=== PATIENT | female | born 1930 | race Native Hawaiian/Other Pacific Islander ===

== ENCOUNTER 2016-06-13 11:51 | Inpatient (IN) | payer MEDICARE ==
[~2016-06-13] VITALS: Ht 160 cm; Wt 45.4 kg
[~2016-06-13 11:51] MED LIST: ARICEPT PO; ASPIRIN PO; CARB-93 PO; FOSAMAX PO; LEXAPRO PO; NAMENDA PO; REQUIP PO
[2016-06-13] MEDS ORDERED: ALEN70TA3 PO (12:14)
[2016-06-13] MEDS ORDERED: DONE10TA44 PO (12:14)
[2016-06-13] MEDS ORDERED: IPRA42SP NS (12:14)
[2016-06-13] MEDS ORDERED: ASPI81TA31 PO (12:14)
[2016-06-13] MEDS ORDERED: ESCI10TA PO (12:14)
[2016-06-13] MEDS ORDERED: MEMA10TA PO (12:14)
[2016-06-13] MEDS ORDERED: DOCU250C75 PO (12:14)
[2016-06-13] MEDS ORDERED: ROPI0.253 PO (12:14)
[2016-06-13] MEDS ORDERED: CEFTRIAXONE 1 G in IV DEXTROSE 5% 50 ML IV ONE (12:15)
[2016-06-13] MEDS ORDERED: GENTAMICIN SULFATE INJ 80 MG in IV DEXTROSE 5% 100 ML IV ONE (12:15)
[2016-06-13] MEDS ORDERED: IV NORMAL SALINE 1000 ML BAG IV ONE (12:15)
[2016-06-13] MEDS ORDERED: GENTAMICIN SULFATE 80 MG/2 ML VIAL ONE (12:50)
[2016-06-13 12:51] LABS: BASOPHILS # (AUTO) 0.2 K/uL (0.0-0.2); BASOPHILS % (AUTO) 2.3 % (0.0-2.0); EOSINOPHILS % (AUTO) 0.1 % (0.0-7.0); HEMATOCRIT 37.6 % (37.0-47.0); HEMOGLOBIN 12.2 g/dL (12.0-16.0); LYMPHOCYTES # (AUTO) 2.7 K/uL (0.8-4.8); LYMPHOCYTES % (AUTO) 32.6 % (20.5-51.5); MEAN CORPUSCULAR HEMOGLOBIN 32.1 uug (27.0-31.0); MEAN CORPUSCULAR HGB CONC 33 g/dL (32.0-37.0); MEAN CORPUSCULAR VOLUME 98.8 fL (81.0-99.0); MONOCYTES # (AUTO) 0.8 K/uL (0.1-1.30); MONOCYTES % (AUTO) 9.9 % (0.0-11.0); NEUTROPHILS # (AUTO) 4.5 K/uL (1.8-8.9); NEUTROPHILS % (AUTO) 55.1 % (38.5-71.5); PLATELET COUNT (AUTO) 87 K/uL (150-450); RED CELL DISTRIBUTION WIDTH 13.7 % (11.5-14.5); WHITE BLOOD COUNT (AUTO) 8.2 K/uL (4.0-11.2)
[2016-06-13] MEDS ORDERED: CEFTRIAXONE 1 G VIAL ONE (12:51)
[2016-06-13 13:00] LABS: CALCIUM 9.2 mg/dL (8.5-10.1); CREATININE 0.9 mg/dL (0.6-1.3); POTASSIUM 4.2 mmol/L (3.5-5.1)
[2016-06-13 13:06] LABS: *BILIRUBIN,URIN NEGATIVE (NEGATIVE); *BLOOD, URINE NEGATIVE (NEGATIVE); *CLARITY,URINE SLIGHTLY CLOUDY (CLEAR); *COLOR,URINE YELLOW (YELLOW); *KETONES,URINE TRACE (NEGATIVE); *PROTEIN,URINE 2+ (NEGATIVE); *UROBILINOGEN,URINE 0.2 E.U./dl (NORMAL); LEUKOCYTE ESTERASE ,URINE 1+ (NEGATIVE); NITRITE, URINE NEGATIVE (NEGATIVE); PH,URINE 5.5 (5.0-8.0); UGLUCOSE NEGATIVE (NEGATIVE)
[2016-06-13 13:07] LABS: TROPONIN I 0.022 ng/mL (0.00-0.056)
[2016-06-13 13:09] LABS: LACTIC ACID 4.6 mmol/L (0.4-2.0)
[2016-06-13 13:14] LABS: ALBUMIN 3.3 g/dL (3.4-5.0); BILIRUBIN,DIRECT 0.1 mg/dL (0.0-0.2); BILIRUBIN,TOTAL 0.5 mg/dL (0.2-1.0); TOTAL PROTEIN, SERUM 6.7 g/dL (6.4-8.2)
[2016-06-13 13:29] LABS: BACTERIA,URINE FEW /HPF (NONE SEEN); WBC,URINE 20-50 /HPF (0-3)
[2016-06-13 13:30] LABS: SQUAMOUS EPITHELIAL CELL,UR MODERATE /HPF (NONE SEEN)
[2016-06-13 13:36] LABS: BAND % (MANUAL) 2 % (0-10); LYMPHOCYTES % (MANUAL) 37 % (20-40); MONOCYTES % (MANUAL) 10 % (2-10); NEUTROPHILS % (MANUAL) 51 % (42-75); PLATELET ESTIMATE DECREASED
[2016-06-13 16:40] VITALS: BP 105/53
[2016-06-13] MEDS ORDERED: ACETAMINOPHEN 325 MG TABLET PO PRN (17:00)
[2016-06-13] MEDS ORDERED: MORPHINE SULFATE 2 MG/1 ML DISP.SYRIN IV PRN (17:00)
[2016-06-13] MEDS ORDERED: DONEPEZIL 10 MG TABLET PO SCH (17:00)
[2016-06-13] MEDS ORDERED: ASPIRIN 81 MG TAB.CHEW PO SCH (17:00)
[2016-06-13 17:55] VITALS: BP 105/53
[2016-06-13] MEDS: ropiniROLE 0.25 MG TABLET PO SCH (18:02)
[2016-06-13] MEDS: CARBIDOPA/LEVODOPA 25-100MG TABLET PO SCH (18:02)
[2016-06-13] MEDS: IV NS 1000 ML 1,000 ML IV PRN (18:15)
[2016-06-13 20:00] VITALS: BP 123/62
[2016-06-13] MEDS ORDERED: DOCUSATE SODIUM 250 MG CAPSULE PO SCH (21:00)
[2016-06-13] MEDS: MEMANTINE HCL 10 MG TABLET PO SCH (21:20)
[2016-06-13] MEDS: DOCUSATE SODIUM 250 MG CAPSULE PO SCH (21:20)
[2016-06-13] MEDS: ESCITALOPRAM OXALATE 10 MG TABLET PO SCH (21:20)
[2016-06-14] VITALS (7 sets, daily range): BP systolic 99–141; BP diastolic 57–76
[2016-06-14] MEDS: IV NS 1000 ML 1,000 ML IV PRN ×2 (06:27→23:13)
[2016-06-14] MEDS: PANTOPRAZOLE SODIUM 40 MG TABLET.DR PO SCH (06:37)
[2016-06-14 07:05] LABS: BASOPHILS % (AUTO) 0.4 % (0.0-2.0); EOSINOPHILS # (AUTO) 0.1 K/uL (0.0-0.7); EOSINOPHILS % (AUTO) 1.3 % (0.0-7.0); HEMATOCRIT 34.2 % (37.0-47.0); HEMOGLOBIN 11.3 g/dL (12.0-16.0); LYMPHOCYTES # (AUTO) 1.7 K/uL (0.8-4.8); LYMPHOCYTES % (AUTO) 26.5 % (20.5-51.5); MEAN CORPUSCULAR HEMOGLOBIN 32.7 uug (27.0-31.0); MEAN CORPUSCULAR HGB CONC 33 g/dL (32.0-37.0); MEAN CORPUSCULAR VOLUME 98.8 fL (81.0-99.0); MONOCYTES # (AUTO) 0.4 K/uL (0.1-1.30); MONOCYTES % (AUTO) 6.9 % (0.0-11.0); NEUTROPHILS # (AUTO) 4.1 K/uL (1.8-8.9); NEUTROPHILS % (AUTO) 64.9 % (38.5-71.5); PLATELET COUNT (AUTO) 118 K/uL (150-450); RED BLOOD CELL COUNT(AUTO) 3.46 MIL/uL (4.20-5.40); WHITE BLOOD COUNT (AUTO) 6.3 K/uL (4.0-11.2)
[2016-06-14 08:48] LABS: THYROID STIMULATING HORMONE 1.68 mIU/mL (0.358-3.740)
[2016-06-14] MEDS: CARBIDOPA/LEVODOPA 25-100MG TABLET PO SCH ×3 (08:48→17:12)
[2016-06-14] MEDS: DOCUSATE SODIUM 250 MG CAPSULE PO SCH ×2 (08:48→20:26)
[2016-06-14] MEDS: MEMANTINE HCL 10 MG TABLET PO SCH ×2 (08:48→20:26)
[2016-06-14] MEDS: ropiniROLE 0.25 MG TABLET PO SCH ×2 (08:51→17:12)
[2016-06-14 10:39] LABS: ALBUMIN 2.9 g/dL (3.4-5.0); BILIRUBIN,TOTAL 0.7 mg/dL (0.2-1.0); CALCIUM 7.9 mg/dL (8.5-10.1); CREATININE 0.7 mg/dL (0.6-1.3); MAGNESIUM 1.8 mg/dL (1.8-2.4); POTASSIUM 3.7 mmol/L (3.5-5.1); TOTAL PROTEIN, SERUM 5.8 g/dL (6.4-8.2)
[2016-06-14] MEDS: CEFTRIAXONE 1 G in IV DEXTROSE 5% 50 ML IV SCH (12:53)
[2016-06-14] MEDS: ESCITALOPRAM OXALATE 10 MG TABLET PO SCH (20:26)
[2016-06-14] MEDS ORDERED: LORAZEPAM 2 MG/1 ML VIAL IV PRN (20:30)
[2016-06-14] MEDS ORDERED: LORAZEPAM 2 MG/1 ML VIAL IV ONE (22:00)
[2016-06-14] MEDS ORDERED: LORAZEPAM 2 MG/1 ML VIAL ONE (22:03)
[2016-06-15 00:42] VITALS: BP 138/75
[2016-06-15 04:00] VITALS: BP 151/86
[2016-06-15] MEDS: PANTOPRAZOLE SODIUM 40 MG TABLET.DR PO SCH (06:04)
[2016-06-15 07:14] LABS: BASOPHILS % (AUTO) 0.1 % (0.0-2.0); EOSINOPHILS # (AUTO) 0.1 K/uL (0.0-0.7); EOSINOPHILS % (AUTO) 0.9 % (0.0-7.0); HEMATOCRIT 36.5 % (37.0-47.0); HEMOGLOBIN 11.7 g/dL (12.0-16.0); LYMPHOCYTES # (AUTO) 1.2 K/uL (0.8-4.8); LYMPHOCYTES % (AUTO) 13.1 % (20.5-51.5); MEAN CORPUSCULAR HEMOGLOBIN 31.9 uug (27.0-31.0); MEAN CORPUSCULAR HGB CONC 32 g/dL (32.0-37.0); MEAN CORPUSCULAR VOLUME 99.4 fL (81.0-99.0); MONOCYTES # (AUTO) 0.5 K/uL (0.1-1.30); MONOCYTES % (AUTO) 6.1 % (0.0-11.0); NEUTROPHILS % (AUTO) 79.8 % (38.5-71.5); PLATELET COUNT (AUTO) 116 K/uL (150-450); RED BLOOD CELL COUNT(AUTO) 3.67 MIL/uL (4.20-5.40); RED CELL DISTRIBUTION WIDTH 14.1 % (11.5-14.5); WHITE BLOOD COUNT (AUTO) 8.8 K/uL (4.0-11.2)
[2016-06-15] MEDS: MEMANTINE HCL 10 MG TABLET PO SCH ×2 (08:03→21:36)
[2016-06-15] MEDS: CARBIDOPA/LEVODOPA 25-100MG TABLET PO SCH ×3 (08:03→17:13)
[2016-06-15] MEDS: DOCUSATE SODIUM 250 MG CAPSULE PO SCH ×2 (08:03→21:36)
[2016-06-15] MEDS: ropiniROLE 0.25 MG TABLET PO SCH ×2 (08:04→17:14)
[2016-06-15 08:13] LABS: ALBUMIN 2.9 g/dL (3.4-5.0); BILIRUBIN,TOTAL 0.7 mg/dL (0.2-1.0); CALCIUM 8.1 mg/dL (8.5-10.1); CREATININE 0.6 mg/dL (0.6-1.3); MAGNESIUM 1.6 mg/dL (1.8-2.4); POTASSIUM 3.7 mmol/L (3.5-5.1); TOTAL PROTEIN, SERUM 6.2 g/dL (6.4-8.2)
[2016-06-15] MEDS: MAGNESIUM SULFATE/D5W 100 ML IV SCH ×2 (10:28→10:36)
[2016-06-15 12:04] VITALS: BP 118/42
[2016-06-15] MEDS ORDERED: Z GUARD REMEDY PASTE 57 GM TUBE TOP PRN (12:45)
[2016-06-15] MEDS: Z GUARD REMEDY PASTE 57 GM TUBE TOP SCH ×2 (13:19→21:36)
[2016-06-15] MEDS: CEFTRIAXONE 1 G in IV DEXTROSE 5% 50 ML IV SCH (13:19)
[2016-06-15 16:03] VITALS: BP 123/79
[2016-06-15 17:50] LABS: *BILIRUBIN,URIN NEGATIVE (NEGATIVE); *BLOOD, URINE 3+ (NEGATIVE); *COLOR,URINE YELLOW (YELLOW); *KETONES,URINE NEGATIVE (NEGATIVE); *PROTEIN,URINE 1+ (NEGATIVE); *UROBILINOGEN,URINE 0.2 E.U./dl (NORMAL); LEUKOCYTE ESTERASE ,URINE NEGATIVE (NEGATIVE); NITRITE, URINE NEGATIVE (NEGATIVE); PH,URINE 5.5 (5.0-8.0); UGLUCOSE NEGATIVE (NEGATIVE)
[2016-06-15 18:03] LABS: *CLARITY,URINE HAZY (CLEAR)
[2016-06-15 18:06] LABS: MUCUS,URINE MODERATE /LPF (0-FEW); RBC,URINE 50-80 /HPF (0-3); WBC,URINE 0-3 /HPF (0-3)
[2016-06-15 20:00] VITALS: BP 126/62
[2016-06-15] MEDS ORDERED: FUROSEMIDE 20 MG/2 ML VIAL IV ONE (21:30)
[2016-06-15] MEDS: ESCITALOPRAM OXALATE 10 MG TABLET PO SCH (21:36)
[2016-06-15] MEDS ORDERED: FUROSEMIDE 20 MG/2 ML VIAL ONE (21:53)
[2016-06-16 06:39] LABS: BASOPHILS % (AUTO) 0.1 % (0.0-2.0); EOSINOPHILS # (AUTO) 0.1 K/uL (0.0-0.7); EOSINOPHILS % (AUTO) 0.8 % (0.0-7.0); HEMATOCRIT 37.5 % (37.0-47.0); HEMOGLOBIN 12.2 g/dL (12.0-16.0); LYMPHOCYTES # (AUTO) 1.2 K/uL (0.8-4.8); LYMPHOCYTES % (AUTO) 14.4 % (20.5-51.5); MEAN CORPUSCULAR HGB CONC 32 g/dL (32.0-37.0); MEAN CORPUSCULAR VOLUME 98.5 fL (81.0-99.0); MONOCYTES # (AUTO) 0.7 K/uL (0.1-1.30); MONOCYTES % (AUTO) 8.1 % (0.0-11.0); NEUTROPHILS # (AUTO) 6.6 K/uL (1.8-8.9); NEUTROPHILS % (AUTO) 76.6 % (38.5-71.5); PLATELET COUNT (AUTO) 109 K/uL (150-450); RED BLOOD CELL COUNT(AUTO) 3.81 MIL/uL (4.20-5.40); RED CELL DISTRIBUTION WIDTH 13.9 % (11.5-14.5); WHITE BLOOD COUNT (AUTO) 8.6 K/uL (4.0-11.2)
[2016-06-16] MEDS: PANTOPRAZOLE SODIUM 40 MG TABLET.DR PO SCH (06:45)
[2016-06-16 06:58] VITALS: BP 122/68
[2016-06-16 07:33] LABS: BILIRUBIN,TOTAL 1.1 mg/dL (0.2-1.0); CALCIUM 8.3 mg/dL (8.5-10.1); CREATININE 0.7 mg/dL (0.6-1.3); MAGNESIUM 1.8 mg/dL (1.8-2.4); PHOSPHOROUS 2.8 mg/dL (2.5-4.9); POTASSIUM 3.6 mmol/L (3.5-5.1); TOTAL PROTEIN, SERUM 6.6 g/dL (6.4-8.2)
[2016-06-16] MEDS: DOCUSATE SODIUM 250 MG CAPSULE PO SCH ×2 (08:16→20:47)
[2016-06-16] MEDS: CARBIDOPA/LEVODOPA 25-100MG TABLET PO SCH ×3 (08:16→17:05)
[2016-06-16] MEDS: MEMANTINE HCL 10 MG TABLET PO SCH ×2 (08:18→20:47)
[2016-06-16] MEDS: ASPIRIN 81 MG TAB.CHEW PO SCH (08:18)
[2016-06-16] MEDS: ropiniROLE 0.25 MG TABLET PO SCH ×2 (08:19→17:05)
[2016-06-16] MEDS: Z GUARD REMEDY PASTE 57 GM TUBE TOP SCH ×2 (08:20→20:48)
[2016-06-16 11:55] VITALS: BP 108/56
[2016-06-16] MEDS: CEFTRIAXONE 1 G in IV DEXTROSE 5% 50 ML IV SCH (12:50)
[2016-06-16 16:02] VITALS: BP 106/65
[2016-06-16 20:00] VITALS: BP 93/56
[2016-06-16] MEDS: ESCITALOPRAM OXALATE 10 MG TABLET PO SCH (20:47)
[2016-06-17 05:00] VITALS: BP 119/73
[2016-06-17] MEDS: PANTOPRAZOLE SODIUM 40 MG TABLET.DR PO SCH (06:39)
[2016-06-17 07:04] LABS: BASOPHILS % (AUTO) 0.3 % (0.0-2.0); EOSINOPHILS # (AUTO) 0.1 K/uL (0.0-0.7); EOSINOPHILS % (AUTO) 2.1 % (0.0-7.0); HEMATOCRIT 34.4 % (37.0-47.0); HEMOGLOBIN 11.3 g/dL (12.0-16.0); LYMPHOCYTES # (AUTO) 1.2 K/uL (0.8-4.8); LYMPHOCYTES % (AUTO) 18.6 % (20.5-51.5); MEAN CORPUSCULAR HEMOGLOBIN 32.5 uug (27.0-31.0); MEAN CORPUSCULAR HGB CONC 33 g/dL (32.0-37.0); MEAN CORPUSCULAR VOLUME 98.9 fL (81.0-99.0); MONOCYTES # (AUTO) 0.7 K/uL (0.1-1.30); MONOCYTES % (AUTO) 10.6 % (0.0-11.0); NEUTROPHILS # (AUTO) 4.6 K/uL (1.8-8.9); NEUTROPHILS % (AUTO) 68.4 % (38.5-71.5); PLATELET COUNT (AUTO) 107 K/uL (150-450); RED BLOOD CELL COUNT(AUTO) 3.48 MIL/uL (4.20-5.40); RED CELL DISTRIBUTION WIDTH 14.1 % (11.5-14.5); WHITE BLOOD COUNT (AUTO) 6.6 K/uL (4.0-11.2)
[2016-06-17 08:08] LABS: CALCIUM 8.3 mg/dL (8.5-10.1); CREATININE 0.6 mg/dL (0.6-1.3); MAGNESIUM 1.7 mg/dL (1.8-2.4); PHOSPHOROUS 2.7 mg/dL (2.5-4.9); POTASSIUM 3.8 mmol/L (3.5-5.1)
[2016-06-17] MEDS: CARBIDOPA/LEVODOPA 25-100MG TABLET PO SCH ×3 (08:10→16:22)
[2016-06-17] MEDS: MEMANTINE HCL 10 MG TABLET PO SCH ×2 (08:11→21:06)
[2016-06-17] MEDS: ropiniROLE 0.25 MG TABLET PO SCH ×2 (08:11→16:22)
[2016-06-17] MEDS: ASPIRIN 81 MG TAB.CHEW PO SCH (08:11)
[2016-06-17] MEDS: DOCUSATE SODIUM 250 MG CAPSULE PO SCH ×2 (08:11→21:06)
[2016-06-17] MEDS: Z GUARD REMEDY PASTE 57 GM TUBE TOP SCH ×2 (08:12→21:07)
[2016-06-17 11:30] VITALS: BP 107/58
[2016-06-17] MEDS: CEFTRIAXONE 1 G in IV DEXTROSE 5% 50 ML IV SCH (12:58)
[2016-06-17] MEDS: MAGNESIUM SULFATE/D5W 100 ML IV SCH ×2 (15:20→16:24)
[2016-06-17 15:33] VITALS: BP 104/50
[2016-06-17 19:00] VITALS: BP 131/69
[2016-06-17] MEDS: ESCITALOPRAM OXALATE 10 MG TABLET PO SCH (21:06)
[2016-06-18 04:41] VITALS: BP 122/67
[2016-06-18] MEDS: PANTOPRAZOLE SODIUM 40 MG TABLET.DR PO SCH (06:23)
[2016-06-18 06:46] LABS: CALCIUM 7.9 mg/dL (8.5-10.1); MAGNESIUM 1.8 mg/dL (1.8-2.4); PHOSPHOROUS 2.6 mg/dL (2.5-4.9); POTASSIUM 3.8 mmol/L (3.5-5.1)
[2016-06-18 06:51] LABS: CREATININE 0.5 mg/dL (0.6-1.3)
[2016-06-18 06:55] LABS: BASOPHILS % (AUTO) 0.2 % (0.0-2.0); EOSINOPHILS # (AUTO) 0.1 K/uL (0.0-0.7); EOSINOPHILS % (AUTO) 2.1 % (0.0-7.0); HEMATOCRIT 31.9 % (37.0-47.0); HEMOGLOBIN 10.7 g/dL (12.0-16.0); LYMPHOCYTES # (AUTO) 1.3 K/uL (0.8-4.8); LYMPHOCYTES % (AUTO) 19.9 % (20.5-51.5); MEAN CORPUSCULAR HEMOGLOBIN 32.8 uug (27.0-31.0); MEAN CORPUSCULAR HGB CONC 34 g/dL (32.0-37.0); MEAN CORPUSCULAR VOLUME 97.6 fL (81.0-99.0); MONOCYTES # (AUTO) 0.8 K/uL (0.1-1.30); MONOCYTES % (AUTO) 12.4 % (0.0-11.0); NEUTROPHILS # (AUTO) 4.1 K/uL (1.8-8.9); NEUTROPHILS % (AUTO) 65.4 % (38.5-71.5); PLATELET COUNT (AUTO) 125 K/uL (150-450); RED BLOOD CELL COUNT(AUTO) 3.27 MIL/uL (4.20-5.40); WHITE BLOOD COUNT (AUTO) 6.3 K/uL (4.0-11.2)
[2016-06-18] MEDS: Z GUARD REMEDY PASTE 57 GM TUBE TOP SCH (08:30)
[2016-06-18] MEDS: MEMANTINE HCL 10 MG TABLET PO SCH (08:30)
[2016-06-18] MEDS: DOCUSATE SODIUM 250 MG CAPSULE PO SCH (08:30)
[2016-06-18] MEDS: ASPIRIN 81 MG TAB.CHEW PO SCH (08:30)
[2016-06-18] MEDS: ropiniROLE 0.25 MG TABLET PO SCH ×2 (08:30→17:50)
[2016-06-18] MEDS: CARBIDOPA/LEVODOPA 25-100MG TABLET PO SCH ×3 (08:30→17:50)
[2016-06-18] MEDS ORDERED: FUROSEMIDE 20 MG/2 ML VIAL IV SCH (09:00)
[2016-06-18] MEDS ORDERED: FAMO-132 PO (10:46)
[2016-06-18] MEDS ORDERED: ASPI81TA31 PO (10:46)
[2016-06-18] MEDS ORDERED: Acetaminophen PO (10:46)
[2016-06-18] MEDS ORDERED: MAGN400T26 PO (10:46)
[2016-06-18] MEDS ORDERED: LEVO500T15 PO (10:46)
[2016-06-18 12:00] VITALS: BP 100/55
[2016-06-18] MEDS: CEFTRIAXONE 1 G in IV DEXTROSE 5% 50 ML IV SCH (13:29)
[2016-06-18] MEDS ORDERED: FUROSEMIDE 20 MG/2 ML VIAL IV ONE (15:00)
[2016-06-18 15:30] VITALS: BP 122/65
[2016-06-18 16:22] VITALS: BP 102/57
== END 2016-06-18 20:29 | DRG 871 ==
LOC: ER 11:51 → TELE 15:55 → MED 06-15 22:11
PROVIDERS: ADMIT Internal Medicine; ATTEND Internal Medicine
DX: A41.9 Sepsis, unspecified organism (principal); J69.0 Pneumonitis due to inhalation of food and vomit; I50.33 Acute on chronic diastolic (congestive) heart failure; E43 Unspecified severe protein-calorie malnutrition; G93.40 Encephalopathy, unspecified; N39.0 Urinary tract infection, site not specified; D68.59 Other primary thrombophilia; I48.4 Atypical atrial flutter; E87.2 Acidosis; Z68.1 Body mass index [BMI] 19.9 or less, adult; I48.91 Unspecified atrial fibrillation; R62.7 Adult failure to thrive; D69.6 Thrombocytopenia, unspecified; E83.42 Hypomagnesemia; Z85.3 Personal history of malignant neoplasm of breast; Z88.2 Allergy status to sulfonamides; Z99.3 Dependence on wheelchair; G31.83 Neurocognitive disorder with Lewy bodies; Z90.10 Acquired absence of unspecified breast and nipple; M81.0 Age-related osteoporosis without current pathological fracture; M19.90 Unspecified osteoarthritis, unspecified site; D50.9 Iron deficiency anemia, unspecified; R13.10 Dysphagia, unspecified; F01.50 Vascular dementia, unspecified severity, without behavioral disturbance, psychotic disturbance, mood disturbance, and anxiety; R32 Unspecified urinary incontinence; I11.0 Hypertensive heart disease with heart failure
CPT/HCPCS: 36415; 51702; 70030-TC; 71010; 71250; 83605; 83735; 84100; 84443; 85025; 85730; 87040; 87086; 92506; 93005; 93307; 97001; 97003; 97110; 97116; 97530; A4663; J0696; J1580; J1940; J2060; J2270; J3475; J3490; J7030; J7060; J8499

== ENCOUNTER 2016-06-20 13:14 | Inpatient (IN) | payer MEDICARE ==
[~2016-06-20] VITALS: Ht 152.4 cm; Wt 41.3 kg
[~2016-06-20 13:14] MED LIST changes: +ALEN70TA3 PO; -ARICEPT PO; +ASPI81TA31 PO; -ASPIRIN PO; +Acetaminophen PO; +DOCU250C75 PO; +DONE10TA44 PO; +ESCI10TA PO; +FAMO-132 PO; -FOSAMAX PO; +IPRA42SP NS; +LEVO500T15 PO; -LEXAPRO PO; +MAGN400T26 PO; +MEMA10TA PO; -NAMENDA PO; -REQUIP PO; +ROPI0.253 PO
--- NOTE | 2016-06-20 13:34 | NUR ---
pt was brought in by [facility] due to tremor observed this am by the jesse painter. pt calm in er. no tremor at this point.
[2016-06-20 14:24] LABS: *BILIRUBIN,URIN NEGATIVE (NEGATIVE); *BLOOD, URINE NEGATIVE (NEGATIVE); *COLOR,URINE YELLOW (YELLOW); *KETONES,URINE NEGATIVE (NEGATIVE); *PROTEIN,URINE 1+ (NEGATIVE); LEUKOCYTE ESTERASE ,URINE NEGATIVE (NEGATIVE); NITRITE, URINE NEGATIVE (NEGATIVE); UGLUCOSE NEGATIVE (NEGATIVE)
[2016-06-20 14:39] LABS: BASOPHILS % (AUTO) 0.4 % (0.0-2.0); EOSINOPHILS # (AUTO) 0.2 K/uL (0.0-0.7); EOSINOPHILS % (AUTO) 4.8 % (0.0-7.0); HEMOGLOBIN 10.9 g/dL (12.0-16.0); LYMPHOCYTES # (AUTO) 0.8 K/uL (0.8-4.8); LYMPHOCYTES % (AUTO) 17.7 % (20.5-51.5); MEAN CORPUSCULAR HEMOGLOBIN 33.6 uug (27.0-31.0); MEAN CORPUSCULAR HGB CONC 34 g/dL (32.0-37.0); MEAN CORPUSCULAR VOLUME 98.9 fL (81.0-99.0); MONOCYTES # (AUTO) 0.7 K/uL (0.1-1.30); MONOCYTES % (AUTO) 15.4 % (0.0-11.0); NEUTROPHILS # (AUTO) 3.1 K/uL (1.8-8.9); NEUTROPHILS % (AUTO) 61.7 % (38.5-71.5); PLATELET COUNT (AUTO) 182 K/uL (150-450); RED BLOOD CELL COUNT(AUTO) 3.24 MIL/uL (4.20-5.40); RED CELL DISTRIBUTION WIDTH 13.8 % (11.5-14.5); WHITE BLOOD COUNT (AUTO) 4.8 K/uL (4.0-11.2)
[2016-06-20 14:51] LABS: ALBUMIN 2.5 g/dL (3.4-5.0); BILIRUBIN,DIRECT 0.1 mg/dL (0.0-0.2); BILIRUBIN,TOTAL 0.4 mg/dL (0.2-1.0); CREATININE 0.6 mg/dL (0.6-1.3); POTASSIUM 4.1 mmol/L (3.5-5.1); TOTAL PROTEIN, SERUM 6.3 g/dL (6.4-8.2)
[2016-06-20 14:54] LABS: *CLARITY,URINE HAZY (CLEAR)
[2016-06-20 14:56] LABS: BACTERIA,URINE FEW /HPF (NONE SEEN); MUCUS,URINE MODERATE /LPF (0-FEW); SQUAMOUS EPITHELIAL CELL,UR MODERATE /HPF (NONE SEEN); TRANSITIONAL EPI CELLS,URINE FEW /LPF (NONE SEEN)
[2016-06-20 15:04] LABS: LACTIC ACID 2.1 mmol/L (0.4-2.0)
[2016-06-20] MEDS ORDERED: IV NORMAL SALINE 500 ML BAG IV ONE (15:15)
[2016-06-20] MEDS ORDERED: LEVOFLOXACIN 750MG/D5W 150 ML IV ONE ×2 (15:15→15:21)
[2016-06-20] MEDS ORDERED: PIPERACILLIN SODIUM/TAZOBACTAM 3.375 G in IV DEXTROSE 5% 50 ML IV ONE (15:15)
[2016-06-20 15:21] LABS: BAND % (MANUAL) 5 % (0-10); EOSINOPHILS % (MANUAL) 4 % (0-8); LYMPHOCYTES % (MANUAL) 17 % (20-40)
[2016-06-20] MEDS ORDERED: PIPERACILLIN/TAZOBACTAM/D5W 50 ML IV ONE (15:21)
[2016-06-20 15:22] LABS: MONOCYTES % (MANUAL) 12 % (2-10); NEUTROPHILS % (MANUAL) 62 % (42-75)
[2016-06-20 15:23] LABS: ANISOCYTOSIS 1+; PLATELET ESTIMATE ADEQUATE
--- NOTE | 2016-06-20 15:55 | NUR ---
PT TRANSFERED TO FLOOR IN STABLE CONDITION. BOTH SONS AT BEDSIDE.
[2016-06-20 16:19] VITALS: BP 119/52
--- NOTE | 2016-06-20 16:41 | NUR ---
86 YEAR OLD FEMALE ADMITTED TO ROOM 227 FOR PNA ,V/S ARE STABLE.PT IS CONFUSED,SON AT BED SIDE.
[2016-06-20] MEDS ORDERED: ALBUTEROL SULFATE 2.5 MG/ 0.5 ML NEBU NEB PRN (20:15)
[2016-06-20] MEDS ORDERED: LORAZEPAM 2 MG/1 ML VIAL IV PRN (20:15)
[2016-06-20] MEDS ORDERED: ACETAMINOPHEN 325 MG TABLET PO PRN (20:15)
[2016-06-20 20:36] VITALS: BP 121/62
[2016-06-20] MEDS ORDERED: DOCUSATE SODIUM 100 MG CAPSULE PO SCH (21:00)
[2016-06-20] MEDS: ESCITALOPRAM OXALATE 10 MG TABLET PO SCH (21:19)
[2016-06-20] MEDS: PIPERACILLIN/TAZOBACTAM/D5W 3.375 G in PREMIXED 1 EACH IV SCH (22:22)
[2016-06-21 00:23] VITALS: BP 125/65
[2016-06-21 04:47] VITALS: BP 105/54
--- NOTE | 2016-06-21 05:23 | NUR ---
#20G IV inserted in left upper arm. IV in right forearm removed due to infiltration. Will continue to observe
[2016-06-21] MEDS: PIPERACILLIN/TAZOBACTAM/D5W 3.375 G in PREMIXED 1 EACH IV SCH ×3 (06:22→22:00)
[2016-06-21] MEDS: PANTOPRAZOLE SODIUM 40 MG TABLET.DR PO SCH (06:27)
[2016-06-21 06:41] LABS: BASOPHILS % (AUTO) 0.3 % (0.0-2.0); EOSINOPHILS # (AUTO) 0.2 K/uL (0.0-0.7); EOSINOPHILS % (AUTO) 4.6 % (0.0-7.0); HEMATOCRIT 31.4 % (37.0-47.0); HEMOGLOBIN 10.7 g/dL (12.0-16.0); LYMPHOCYTES # (AUTO) 1.2 K/uL (0.8-4.8); LYMPHOCYTES % (AUTO) 25.8 % (20.5-51.5); MEAN CORPUSCULAR HEMOGLOBIN 33.6 uug (27.0-31.0); MEAN CORPUSCULAR HGB CONC 34 g/dL (32.0-37.0); MEAN CORPUSCULAR VOLUME 98.8 fL (81.0-99.0); MONOCYTES # (AUTO) 0.6 K/uL (0.1-1.30); MONOCYTES % (AUTO) 12.8 % (0.0-11.0); NEUTROPHILS # (AUTO) 2.6 K/uL (1.8-8.9); NEUTROPHILS % (AUTO) 56.5 % (38.5-71.5); PLATELET COUNT (AUTO) 188 K/uL (150-450); RED BLOOD CELL COUNT(AUTO) 3.18 MIL/uL (4.20-5.40); RED CELL DISTRIBUTION WIDTH 13.8 % (11.5-14.5); WHITE BLOOD COUNT (AUTO) 4.6 K/uL (4.0-11.2)
[2016-06-21 07:14] LABS: ALBUMIN 2.5 g/dL (3.4-5.0); BILIRUBIN,TOTAL 0.5 mg/dL (0.2-1.0); CALCIUM 8.6 mg/dL (8.5-10.1); CREATININE 0.7 mg/dL (0.6-1.3); PHOSPHOROUS 3.9 mg/dL (2.5-4.9); POTASSIUM 4.2 mmol/L (3.5-5.1); TOTAL PROTEIN, SERUM 5.9 g/dL (6.4-8.2)
[2016-06-21] MEDS: MEMANTINE HCL 10 MG TABLET PO SCH ×2 (08:52→16:17)
[2016-06-21] MEDS: ASPIRIN 81 MG TAB.CHEW PO SCH (08:52)
[2016-06-21] MEDS: DOCUSATE SODIUM 250 MG CAPSULE PO SCH ×2 (08:52→16:17)
[2016-06-21] MEDS: DONEPEZIL 10 MG TABLET PO SCH ×2 (08:52→16:17)
[2016-06-21] MEDS: CARBIDOPA/LEVODOPA 25-100MG TABLET PO SCH ×3 (08:52→16:17)
[2016-06-21] MEDS: SPIRONOLACTONE 25 MG TABLET PO SCH (08:53)
[2016-06-21] MEDS: IPRATROPIUM BROMIDE NASAL 15 ML BOTTLE 42 MCG/SPRAY NS SCH ×2 (09:48→16:17)
[2016-06-21] MEDS: ropiniROLE 0.25 MG TABLET PO SCH ×2 (09:48→16:17)
--- NOTE | 2016-06-21 11:21 | NUR ---
Spoke to son Felix in length. Reported giving sample case porter a copy of advance care directive stating DNR/DNI code status. Called and left message to voice-mail. Informed patient RN on duty of situation.
[2016-06-21 11:54] VITALS: BP 117/63
[2016-06-21 15:55] VITALS: BP 112/62
--- NOTE | 2016-06-21 17:36 | NUR ---
PATIENT IN BED SLEEPING INTERMITTENTLY. NO S/S OF DISTRESS OR PAIN NOTED. SON WAS AT THE BEDSIDE DURING MORNING Y PART OF THE AFTERNOON. NOW, SHE IS AWAKE, HAD FEW BITES OF HER DINNER, BUT REFUSED TO EAT THE REST. PATIENT HAD A BM TODAY. IV STILL INTACT. SAFETY AND COMFORT PROVIDED BY STAFF. WILL CONTINUE MONITORING.
[2016-06-21 19:00] VITALS: BP 122/99
--- NOTE | 2016-06-21 19:15 | NUR ---
PATIENT AWAKE EYE OPEN, NO SOB, NO CHEST PAIN NOTED, CONT TO MONITOR.
[2016-06-21] MEDS: ESCITALOPRAM OXALATE 10 MG TABLET PO SCH (21:59)
[2016-06-22 00:03] VITALS: BP 126/69
[2016-06-22 04:00] VITALS: BP 128/64
[2016-06-22] MEDS: PIPERACILLIN/TAZOBACTAM/D5W 3.375 G in PREMIXED 1 EACH IV SCH ×3 (05:21→21:01)
[2016-06-22] MEDS: PANTOPRAZOLE SODIUM 40 MG TABLET.DR PO SCH (06:12)
--- NOTE | 2016-06-22 06:51 | NUR ---
PATIENT SLEPT MOST OF THE NIGHT NO SOB NO CHEST PAIN NOTED, A FIB BET 80- 96 TURN AND REPOSITION KEPT COMFORTABLE.
[2016-06-22 07:08] LABS: ALBUMIN 2.6 g/dL (3.4-5.0); BILIRUBIN,TOTAL 0.5 mg/dL (0.2-1.0); CALCIUM 8.7 mg/dL (8.5-10.1); CREATININE 0.7 mg/dL (0.6-1.3); MAGNESIUM 2.2 mg/dL (1.8-2.4); PHOSPHOROUS 4.1 mg/dL (2.5-4.9); TOTAL PROTEIN, SERUM 6.2 g/dL (6.4-8.2)
[2016-06-22 07:40] LABS: HEMATOCRIT 36.5 % (37.0-47.0); HEMOGLOBIN 11.7 g/dL (12.0-16.0); MEAN CORPUSCULAR HEMOGLOBIN 32.3 uug (27.0-31.0); MEAN CORPUSCULAR HGB CONC 32 g/dL (32.0-37.0); MEAN CORPUSCULAR VOLUME 100.6 fL (81.0-99.0); PLATELET COUNT (AUTO) 215 K/uL (150-450); RED BLOOD CELL COUNT(AUTO) 3.62 MIL/uL (4.20-5.40); RED CELL DISTRIBUTION WIDTH 13.8 % (11.5-14.5); WHITE BLOOD COUNT (AUTO) 4.9 K/uL (4.0-11.2)
[2016-06-22] MEDS ORDERED: Z GUARD REMEDY PASTE 57 GM TUBE TOP PRN (08:30)
[2016-06-22] MEDS: DOCUSATE SODIUM 250 MG CAPSULE PO SCH ×2 (08:34→16:42)
[2016-06-22] MEDS: IPRATROPIUM BROMIDE NASAL 15 ML BOTTLE 42 MCG/SPRAY NS SCH ×2 (08:34→16:42)
[2016-06-22] MEDS: ropiniROLE 0.25 MG TABLET PO SCH ×2 (08:34→16:42)
[2016-06-22] MEDS: MEMANTINE HCL 10 MG TABLET PO SCH ×2 (08:35→16:42)
[2016-06-22] MEDS: CARBIDOPA/LEVODOPA 25-100MG TABLET PO SCH ×3 (08:35→16:42)
[2016-06-22] MEDS: DONEPEZIL 10 MG TABLET PO SCH ×2 (08:36→16:42)
[2016-06-22] MEDS: ASPIRIN 81 MG TAB.CHEW PO SCH (08:36)
[2016-06-22] MEDS: SPIRONOLACTONE 25 MG TABLET PO SCH (08:36)
[2016-06-22 11:14] LABS: BASOPHILS % (AUTO) 0.4 % (0.0-2.0); EOSINOPHILS # (AUTO) 0.2 K/uL (0.0-0.7); EOSINOPHILS % (AUTO) 4.6 % (0.0-7.0); LYMPHOCYTES # (AUTO) 1.3 K/uL (0.8-4.8); LYMPHOCYTES % (AUTO) 26.1 % (20.5-51.5); MONOCYTES # (AUTO) 0.7 K/uL (0.1-1.30); MONOCYTES % (AUTO) 13.3 % (0.0-11.0); NEUTROPHILS # (AUTO) 2.7 K/uL (1.8-8.9); NEUTROPHILS % (AUTO) 55.6 % (38.5-71.5)
--- NOTE | 2016-06-22 11:59 | NUR ---
CLINICAL PHARMACY NOTE(REVIEW OF [facility] MEDICATION[facility]) atient brought in by caregiver [facility] for evaluation of stroke and low oxygen. Patient with history of dementia recently admitted a week ago for UTI and possible aspiration pneumonia. She has been boarding care for the past 2 days and this morning staff noticed possible spastic movement of her 4 extremities versus tremor. They notices occurring for a minute or 2 every 15 minutes for about hour period started at 9:00. After her this morning's carbidopa it improved and then returned again around 11 AM. She was at her baseline in terms of mental status and didn't appear to like seizures per staff. Patient without history of underlying seizure disorder. They're also concerned as she is on oxygen at baseline and oxygen monitor kept going off. Per the caregiver she was discharged on home O2 after recent admission but they're unsure how often she has been using it. The caregiver states that she was on oxygen today when the oxygen monitor continued to be suggesting hypoxia. She has had no vomiting or diarrhea. Poor oral intake overall and staff state the patient has had long-standing difficulty swallowing Medical history Past Medical Hx: Yes HX Neurological Disorder: Yes (parkinson's ds) HX Cardiac Disorder: Yes (htn) HX Respiratory Disorder: No HX Gastrointestinal Disorder: Yes (dysphagia) HX Genitourinary Disorder: No HX Diabetes: No HX Cancer: Yes (breast) HX Musculoskeletal Disorder: Yes (unsteady gate) HX Psychiatric Problems: Yes (dementia) HX Integumentary Disorder: No All medications review as of today high risk medication are donepezil,escitalopram,pantoprazole, and spironolactone. Donepezil increase risk of orthostatic hypotension or bradycardia. Escitalopram increase risk of ataxia impaired psychomotor function syncope---increase fall risk. Pantoprazole risk of clostridium difficile and tse loss. Spironolactone risk of hyperkalemia in elderly with doses above 25mg (patient on 25mg). Recommendations: No history of depression noted. If there is no diagnosis of depression discontinuation of escitalopram. Monitor for hypotension and bradycardia. Monitor potassium level. Patient was not on PPI as an outpatient recommend discontinuing upon discharge if no indication found.
[2016-06-22 12:56] VITALS: BP 123/79
[2016-06-22 15:37] VITALS: BP 132/91
--- NOTE | 2016-06-22 17:00 | NUR ---
Discharge plan: To go to [facility] [ ; [address] [place] [address]] once medically cleared. Spoke to Danyelle from [facility] and she confirmed that they will admit her once a bed is available. Her sons are aware and update the devulcanizer charger, Ralph.
--- NOTE | 2016-06-22 17:18 | NUR ---
PATIENT BEEN IN BED RESTING, SLEEPING INTERMITTENTLY. NO S/S OF DISTRESS NOTED. FLACC SCORE ZERO FOR PAIN. FAMILY MEMBERS AT THE BEDSIDE IN THE AFTERNOON. PATIENT WAS ABLE TO TOLERATE HER MEALS WITH NO S/S OF ASPIRATION. SWALLOW EVAL VIDEO WAS DONE TODAY @1600. IV STILL INTACT. BM TODAY. SAFETY AND COMFORT PROVIDED BY STAFF. WILL CONTINUE MONITORING
[2016-06-22 19:00] VITALS: BP 123/65
--- NOTE | 2016-06-22 19:00 | NUR ---
PATIENT AWAKE, BUT FORGETFUL, WITH EPISODES OF RESTLESS, PULLING TUBES, ORIENT PATIENT, NO SOB, NO CHEST PAIN, CONT TO MONITOR.
[2016-06-22] MEDS: ESCITALOPRAM OXALATE 10 MG TABLET PO SCH (20:30)
--- NOTE | 2016-06-22 21:33 | NUR ---
PATIENT PULLING OUT TUBES, PULLING OUT IV'S KEPT CLEAN DRY AND COMFORTABLE, ASSESS FOR PAIN, CLAIMED SHE DOESNT HAVE PAIN, GIVEN ATIVAN ORDERED, WITH HELP. NO ASE.
[2016-06-23 04:00] VITALS: BP 115/61
--- NOTE | 2016-06-23 04:48 | NUR ---
PATIENT SLEPT MOST OF THE NIGHT, OXYGEN SAT WNL, NO SOB, NO CHEST PAIN NOTED, TURN AND REPOSITION EVERY TWO HOURS, KEPT CLEAN AND DRY, NO DISTRESS.
[2016-06-23] MEDS: PIPERACILLIN/TAZOBACTAM/D5W 3.375 G in PREMIXED 1 EACH IV SCH ×3 (05:02→21:23)
[2016-06-23 07:00] LABS: HEMATOCRIT 35.4 % (37.0-47.0); HEMOGLOBIN 11.4 g/dL (12.0-16.0); MEAN CORPUSCULAR HEMOGLOBIN 32.5 uug (27.0-31.0); MEAN CORPUSCULAR HGB CONC 32 g/dL (32.0-37.0); MEAN CORPUSCULAR VOLUME 101.3 fL (81.0-99.0); PLATELET COUNT (AUTO) 233 K/uL (150-450); RED BLOOD CELL COUNT(AUTO) 3.49 MIL/uL (4.20-5.40); RED CELL DISTRIBUTION WIDTH 13.9 % (11.5-14.5); WHITE BLOOD COUNT (AUTO) 5.3 K/uL (4.0-11.2)
[2016-06-23 07:27] LABS: CALCIUM 8.7 mg/dL (8.5-10.1); CREATININE 0.7 mg/dL (0.6-1.3); MAGNESIUM 2.1 mg/dL (1.8-2.4); PHOSPHOROUS 3.6 mg/dL (2.5-4.9); POTASSIUM 3.8 mmol/L (3.5-5.1)
[2016-06-23] MEDS: PANTOPRAZOLE SODIUM 40 MG TABLET.DR PO SCH (07:30)
[2016-06-23] MEDS: IPRATROPIUM BROMIDE NASAL 15 ML BOTTLE 42 MCG/SPRAY NS SCH ×2 (08:11→16:46)
[2016-06-23] MEDS: SPIRONOLACTONE 25 MG TABLET PO SCH (08:12)
[2016-06-23] MEDS: ASPIRIN 81 MG TAB.CHEW PO SCH (08:13)
[2016-06-23] MEDS: DOCUSATE SODIUM 250 MG CAPSULE PO SCH ×2 (08:13→16:46)
[2016-06-23] MEDS: DONEPEZIL 10 MG TABLET PO SCH ×2 (08:13→16:46)
[2016-06-23] MEDS: MEMANTINE HCL 10 MG TABLET PO SCH ×2 (08:13→16:46)
[2016-06-23] MEDS: CARBIDOPA/LEVODOPA 25-100MG TABLET PO SCH ×3 (08:13→16:46)
[2016-06-23] MEDS: ropiniROLE 0.25 MG TABLET PO SCH ×2 (08:14→16:46)
[2016-06-23 11:04] VITALS: BP 100/62
[2016-06-23 11:20] LABS: BASOPHILS % (AUTO) 0.6 % (0.0-2.0); EOSINOPHILS % (AUTO) 4.1 % (0.0-7.0); LYMPHOCYTES % (AUTO) 23.4 % (20.5-51.5); MONOCYTES % (AUTO) 10.7 % (0.0-11.0); NEUTROPHILS % (AUTO) 61.2 % (38.5-71.5)
--- NOTE | 2016-06-23 18:23 | NUR ---
PATIENT BEEN IN BED SLEEPING INTERMITTENTLY. NO S/S OF DISTRESS NOTED. FLACC SCORE ZERO. OXYGEN 2L MAINTAIN. REPOSITION Q2HRS FOR SKIN INTEGRITY. GOOD APPETITE, TOLERATED WELL. NO S/S OF ASPIRATION NOTED. SON RODGER WAS HERE VISITING. POSSIBLE DC TOMORROW. IV STILL INTACT. SAFETY AND COMFORT PROVIDED BY STAFF. WILL CONTINUE MONITORING.
[2016-06-23 19:00] VITALS: BP 113/49
--- NOTE | 2016-06-23 19:35 | NUR ---
PATIENT AWAKE, BUT FORGETFUL, ON OXYGEN, SAT WNL, NO SOB NO CHEST PAIN NOTED CONT TO MONITOR.
[2016-06-23] MEDS: ESCITALOPRAM OXALATE 10 MG TABLET PO SCH (20:21)
[2016-06-24 04:00] VITALS: BP 140/69
[2016-06-24] MEDS: PIPERACILLIN/TAZOBACTAM/D5W 3.375 G in PREMIXED 1 EACH IV SCH (05:05)
[2016-06-24] MEDS: PANTOPRAZOLE SODIUM 40 MG TABLET.DR PO SCH (06:01)
--- NOTE | 2016-06-24 07:00 | NUR ---
PATIENT SLEPT MOST OF THE NIGHT, NO SOB NO CHEST PAIN, OXYGEN SAT WNL, KEPT CLEAN AND DRY, NO S/S OF DISTRESS.
[2016-06-24] MEDS: DOCUSATE SODIUM 250 MG CAPSULE PO SCH (08:31)
[2016-06-24] MEDS: MEMANTINE HCL 10 MG TABLET PO SCH (08:31)
[2016-06-24] MEDS: CARBIDOPA/LEVODOPA 25-100MG TABLET PO SCH ×2 (08:31→12:06)
[2016-06-24] MEDS: ASPIRIN 81 MG TAB.CHEW PO SCH (08:31)
[2016-06-24] MEDS: DONEPEZIL 10 MG TABLET PO SCH (08:31)
[2016-06-24] MEDS: SPIRONOLACTONE 25 MG TABLET PO SCH (08:32)
[2016-06-24] MEDS: IPRATROPIUM BROMIDE NASAL 15 ML BOTTLE 42 MCG/SPRAY NS SCH (08:33)
[2016-06-24] MEDS: ropiniROLE 0.25 MG TABLET PO SCH (08:34)
[2016-06-24] MEDS ORDERED: CHOLECALCIFEROL 1,000 UNIT TABLET PO SCH (09:00)
[2016-06-24] MEDS ORDERED: SPIR25TA PO (10:49)
[2016-06-24] MEDS ORDERED: ALBU2.5V13 NEB (10:49)
[2016-06-24] MEDS ORDERED: MENT71OI TOP (10:49)
[2016-06-24] MEDS ORDERED: CHOL10002 PO (10:49)
[2016-06-24] MEDS ORDERED: Acetaminophen PO (10:49)
[2016-06-24] MEDS ORDERED: PANT40TA2 PO (10:49)
--- NOTE | 2016-06-24 10:54 | NUR ---
The patient will be discharged today to [facility] [ ; [address] [place] [address]] via [facility]. Leti from [facility] confirmed that they will admit the patient today. Spoke to the patient's son, Felix [[phone]; [phone]], who was in agreement with the discharge. Her RN, [place], is aware of her discharge plan and will call the facility for the report.
[2016-06-24 11:20] VITALS: BP 106/59
--- NOTE | 2016-06-24 13:45 | NUR ---
report given to RAMYA from [facility] RN. Pt is in no acute distress upon d/c. NO SOB upon d/c. Spoke with Son Felix about d/c instructions - verbalized understanding. IV d/c. Report given to chemistry faculty member. Pt to f/u with vaccination with their own PMD. Pictures taken of bruising on UE's, redness of periarea, and old wound on sacrum not open.
[2016-06-24] MEDS ORDERED: BARIUM SULFATE 148 GM SUSP.RECON PO ONE (14:09)
[2016-06-24] MEDS ORDERED: BARIUM SULFATE 240 ML ORAL.SUSP PO ONE (14:09)
[2016-06-27] MEDS ORDERED: ALENDRONATE SODIUM 70 MG TABLET PO SCH (06:00)
== END 2016-06-24 14:10 | DRG 871 ==
LOC: ER 13:14 → TELE 15:44 → MED 06-22 10:17
PROVIDERS: ADMIT Internal Medicine; ATTEND Internal Medicine
DX: A41.9 Sepsis, unspecified organism (principal); E43 Unspecified severe protein-calorie malnutrition; G93.40 Encephalopathy, unspecified; J96.21 Acute and chronic respiratory failure with hypoxia; J18.9 Pneumonia, unspecified organism; I50.32 Chronic diastolic (congestive) heart failure; D68.59 Other primary thrombophilia; Z68.1 Body mass index [BMI] 19.9 or less, adult; D63.8 Anemia in other chronic diseases classified elsewhere; G20 Parkinson's disease; Z66 Do not resuscitate; Z51.5 Encounter for palliative care; M81.0 Age-related osteoporosis without current pathological fracture; M19.90 Unspecified osteoarthritis, unspecified site; I48.91 Unspecified atrial fibrillation; E55.9 Vitamin D deficiency, unspecified; F02.80 Dementia in other diseases classified elsewhere, unspecified severity, without behavioral disturbance, psychotic disturbance, mood disturbance, and anxiety; Z85.3 Personal history of malignant neoplasm of breast; R62.7 Adult failure to thrive; Z90.10 Acquired absence of unspecified breast and nipple; I11.0 Hypertensive heart disease with heart failure; Z88.2 Allergy status to sulfonamides; R47.02 Dysphasia; R65.20 Severe sepsis without septic shock
CPT/HCPCS: 36415; 70030-TC; 70450; 71010; 74230; 82306; 83605; 83735; 84100; 85025; 85730; 87040; 87086; 92506; 92611; 93005; 97001; 97003; 97116; 97530; A4663; J1956; J2060; J2543; J7040; J7050; J8499

== ENCOUNTER 2016-07-22 11:37 | Inpatient (IN) | payer MEDICARE ==
[~2016-07-22] VITALS: Ht 165.1 cm; Wt 40.8 kg
[~2016-07-22 11:37] MED LIST changes: +ALBU2.5V13 NEB; +CHOL10002 PO; -FAMO-132 PO; -LEVO500T15 PO; -MAGN400T26 PO; +MENT71OI TOP; +PANT40TA2 PO; +SPIR25TA PO
[2016-07-22 12:09] LABS: BASOPHILS % (AUTO) 0.2 % (0.0-2.0); EOSINOPHILS % (AUTO) 0.1 % (0.0-7.0); HEMATOCRIT 47.6 % (31.2-41.9); HEMOGLOBIN 15.7 g/dL (10.9-14.3); LYMPHOCYTES # (AUTO) 0.5 K/uL (20.0-40.0); LYMPHOCYTES % (AUTO) 8.3 % (20.5-51.5); MEAN CORPUSCULAR HEMOGLOBIN 32.8 uug (24.7-32.8); MEAN CORPUSCULAR HGB CONC 33 g/dL (32.3-35.6); MEAN CORPUSCULAR VOLUME 99.8 fL (75.5-95.3); MONOCYTES # (AUTO) 0.2 K/uL (2.0-10.0); NEUTROPHILS # (AUTO) 5.5 K/uL (1.8-8.9); NEUTROPHILS % (AUTO) 87.4 % (38.5-71.5); PLATELET COUNT (AUTO) 96 K/uL (179-408); RED BLOOD CELL COUNT(AUTO) 4.77 MIL/uL (3.63-4.92); RED CELL DISTRIBUTION WIDTH 13.9 % (12.3-17.7); WHITE BLOOD COUNT (AUTO) 6.2 K/uL (3.8-11.8)
--- NOTE | 2016-07-22 12:10 | NUR ---
PERINEAL HYGIENE PROVIDED, DIAPER SOILED WITH URINE AND SMALL AMOUNT OF LIGH BROWN SOFT STOOL.
[2016-07-22 12:12] LABS: CALCIUM 9.8 mg/dL (8.5-10.1); CREATININE 1.1 mg/dL (0.6-1.3); POTASSIUM 4.1 mmol/L (3.5-5.1)
[2016-07-22 12:21] LABS: TROPONIN I 0.037 ng/mL (0.00-0.056)
[2016-07-22 12:25] LABS: BILIRUBIN,DIRECT 0.2 mg/dL (0.0-0.2); BILIRUBIN,TOTAL 0.6 mg/dL (0.2-1.0); TOTAL PROTEIN, SERUM 7.2 g/dL (6.4-8.2)
[2016-07-22 12:26] LABS: LACTIC ACID 3.9 mmol/L (0.4-2.0)
[2016-07-22 12:40] LABS: *BILIRUBIN,URIN NEGATIVE (NEGATIVE); *BLOOD, URINE Trace-intact (NEGATIVE); *CLARITY,URINE CLEAR (CLEAR); *COLOR,URINE YELLOW (YELLOW); *KETONES,URINE NEGATIVE (NEGATIVE); *PROTEIN,URINE NEGATIVE (NEGATIVE); *UROBILINOGEN,URINE 0.2 E.U./dl (NORMAL); LEUKOCYTE ESTERASE ,URINE 1+ (NEGATIVE); NITRITE, URINE NEGATIVE (NEGATIVE); UGLUCOSE NEGATIVE (NEGATIVE)
[2016-07-22] MEDS ORDERED: AZITHROMYCIN IV 500 MG in IV DEXTROSE 5% 250 ML IV ONE (12:45)
[2016-07-22] MEDS ORDERED: IMIPENEM/CILASTATIN SODIUM 500 MG in IV NORMAL SALINE 100 ML IV ONE (12:45)
[2016-07-22] MEDS ORDERED: PIPERACILLIN SODIUM/TAZOBACTAM 3.375 G in IV DEXTROSE 5% 50 ML IV ONE (12:45)
[2016-07-22] MEDS ORDERED: BISA10SU12 RC (12:46)
[2016-07-22] MEDS ORDERED: MEGE400O PO (12:46)
[2016-07-22] MEDS ORDERED: PROSTAT SF PO (12:46)
[2016-07-22] MEDS ORDERED: MULT-213 PO (12:46)
[2016-07-22] MEDS ORDERED: MAGN400O4 PO (12:46)
[2016-07-22] MEDS ORDERED: NA P133E RC (12:46)
[2016-07-22] MEDS ORDERED: CRAN425C PO (12:46)
[2016-07-22] MEDS ORDERED: ASCO500C16 PO (12:46)
[2016-07-22] MEDS ORDERED: ZINC220C8 PO (12:46)
[2016-07-22] MEDS ORDERED: DONE10TA4 PO (12:46)
[2016-07-22] MEDS ORDERED: AZITHROMYCIN 500 MG VIAL IV ONE (12:55)
[2016-07-22] MEDS ORDERED: MEROPENEM 500 MG in IV NORMAL SALINE 100 ML IV ONE (13:00)
--- NOTE | 2016-07-22 13:05 | NUR ---
HAIDER MISTRY AT BEDSIDE TALKING TO PT SON AND EXAMINING THE PT.
[2016-07-22 13:06] LABS: BACTERIA,URINE NONE SEEN /HPF (NONE SEEN); RBC,URINE 0-3 /HPF (0-3); SQUAMOUS EPITHELIAL CELL,UR FEW /HPF (NONE SEEN); WBC,URINE 0-3 /HPF (0-3)
[2016-07-22 13:07] LABS: URINE AMORPHOUS URATE FEW /HPF
[2016-07-22] MEDS ORDERED: MEROPENEM 500 MG VIAL IV ONE (13:11)
[2016-07-22] MEDS ORDERED: ALBUTEROL SULFATE 2.5 MG/ 0.5 ML NEBU NEB PRN ×2 (13:15→17:15)
[2016-07-22] MEDS ORDERED: MAGNESIUM HYDROXIDE 30 ML LIQUID UDC PO PRN ×2 (13:15)
[2016-07-22] MEDS ORDERED: Medication Not On Formulary EA ([Acetaminophen] (Tylenol) 650 MG) PO PRN (13:15)
[2016-07-22] MEDS ORDERED: ONDANSETRON 4 MG/2 ML VIAL IV PRN (13:15)
[2016-07-22] MEDS ORDERED: IV NORMAL SALINE 1000 ML BAG IV ONE (13:15)
[2016-07-22] MEDS ORDERED: Z GUARD REMEDY PASTE 57 GM TUBE TOP PRN (13:15)
[2016-07-22] MEDS ORDERED: PIPERACILLIN/TAZOBACTAM/D5W 50 ML IV SCH (13:15)
[2016-07-22] MEDS ORDERED: BISACODYL 10 MG SUPP.RECT RC PRN (13:15)
--- NOTE | 2016-07-22 13:38 | NUR ---
PER ER MD ORDER AND ASSESSMENT, PT REQUIRES ONLY 500ML FLUID AT THIS POINT.
[2016-07-22] MEDS ORDERED: ACETAMINOPHEN 325 MG TABLET PO PRN (13:45)
[2016-07-22 13:47] LABS: BAND % (MANUAL) 54 % (0-10); LYMPHOCYTES % (MANUAL) 6 % (20-40); METAMYELOCYTES % 15 % (0-1); MONOCYTES % (MANUAL) 6 % (2-10); NEUTROPHILS % (MANUAL) 19 % (42-75)
[2016-07-22 13:48] LABS: PLATELET ESTIMATE DECRE
--- NOTE | 2016-07-22 13:49 | NUR ---
Clinical Pharmacy Note: Vancomycin Dosing per Pharmacy Subjective: Vancomycin IV to start on this 86 yo female patient for PNA, UTI, sepsis (waiting for MD note). Objective: BUN 29/Scr 1.1 WBC 6.2 Temperature 98.6 ht 4' wt 85 lb Assessment/Plan: Will start vancomycin 500mg IVPB Q38hr for a predicted vancomycin steady state trough level of 15 mcg/ml. First dose is due today at 1500. Will draw a vancomycin trough level prior to the 4th dose of vancomycin (not ordered yet). Will monitor renal function and adjust vancomycin dose, if needed, should renal function change significantly. Will follow daily.
[2016-07-22 14:05] VITALS: BP 129/79
[2016-07-22] MEDS ORDERED: ACETAMINOPHEN 650 MG SUPP.RECT RC PRN (14:15)
--- NOTE | 2016-07-22 14:15 | NUR ---
Pt's lactic acid 6.9 notified Rubin. Per rubin Zhu ID is in the case and to start Vanco BLAISE. Pt afebrile 98.0. with HR of 98 afib on tele, resp 18 on 2 liters N/C with saturation of 96%. Pt nonverbal and very hard to understand. Pt has missael prominence on coccyx - with very minimal open wound of [id number]. Foot drop noted bilaterally and floated heels. IV on left upper arm and left lower arm intact. Pt is in no acute distress. Call light is within reach. Family members at bedside. DVT pump applied on cesar legs. Awaiting for 1st step air matress secondary to low concepción score. Pt on Aspiration and Fall precaution implemented. Call light is within reach. Awaiting Vanco to be mixed and delivered.
[2016-07-22 15:11] VITALS: BP 132/78
[2016-07-22] MEDS: VANCOMYCIN IV 500 MG in IV DEXTROSE 5% 100 ML IV SCH (15:41)
[2016-07-22] MEDS ORDERED: CARBIDOPA/LEVODOPA 25-100MG TABLET PO SCH (17:00)
[2016-07-22] MEDS ORDERED: DOCUSATE SODIUM 100 MG CAPSULE PO SCH (17:00)
[2016-07-22] MEDS ORDERED: DOCUSATE SODIUM 250 MG CAPSULE PO SCH (17:00)
[2016-07-22] MEDS ORDERED: IPRATROPIUM BROMIDE NASAL 15 ML BOTTLE 42 MCG/SPRAY NS SCH (17:00)
[2016-07-22] MEDS ORDERED: ropiniROLE 0.25 MG TABLET PO SCH (17:00)
[2016-07-22] MEDS ORDERED: MEMANTINE HCL 10 MG TABLET PO SCH (17:00)
[2016-07-22] MEDS: PIPERACILLIN/TAZOBACTAM/D5W 2.25 G in PREMIXED 1 EACH IV SCH ×2 (17:05→23:48)
--- NOTE | 2016-07-22 18:30 | NUR ---
Pt is in no acute distress. Pt more awake. no fall, no aspiration noted. Pt was pocketing food during dinner feeds. Call light is within reach. 02 sat 96%@2 liters
[2016-07-22 20:30] VITALS: BP 94/49
[2016-07-22] MEDS: IPRATROPIUM BROMIDE 0.5 MG/2.5 ML NEBU NEB SCH (20:30)
[2016-07-22] MEDS: ALBUTEROL SULFATE 2.5 MG/3 ML NEBU NEB SCH (20:30)
[2016-07-22] MEDS ORDERED: MEMANTINE HCL 5 MG TABLET PO SCH (21:00)
[2016-07-22] MEDS ORDERED: ESCITALOPRAM OXALATE 10 MG TABLET PO SCH (21:00)
[2016-07-23 00:16] VITALS: BP 99/64
[2016-07-23] MEDS: IPRATROPIUM BROMIDE 0.5 MG/2.5 ML NEBU NEB SCH ×2 (02:30→07:20)
[2016-07-23] MEDS: ALBUTEROL SULFATE 2.5 MG/3 ML NEBU NEB SCH ×2 (02:30→07:20)
--- NOTE | 2016-07-23 02:30 | NUR ---
Pt asleep. No sob noted. HHN tx not given. Charge nurse aware.
[2016-07-23 04:00] VITALS: BP 109/75
--- NOTE | 2016-07-23 06:01 | NUR ---
PT IN BED RESTING, SLEPT INTERMITTENTLY DURING SHIFT. ON FIRST STEP MATTRESS. ON A FLUTTER ON TELE, IN NO ACUTE SIGNS OF DISTRESS. PT HAD SOFT BM X 1. PERICARE DONE. TURNED AND REPOSITIONED. NO C/O PAIN. V/S CHECKED AND RECORDED, AFEBRILE, SAFETY NEEDS RENDERED. CALL LIGHT WITHIN REACH.
[2016-07-23] MEDS: PIPERACILLIN/TAZOBACTAM/D5W 2.25 G in PREMIXED 1 EACH IV SCH ×4 (06:26→23:29)
[2016-07-23] MEDS ORDERED: PANTOPRAZOLE SODIUM 40 MG TABLET.DR PO SCH (07:00)
[2016-07-23 07:21] LABS: EOSINOPHILS # (AUTO) 0.1 K/uL (0.0-0.7); EOSINOPHILS % (AUTO) 0.9 % (0.0-7.0); HEMATOCRIT 47.5 % (31.2-41.9); LYMPHOCYTES # (AUTO) 0.8 K/uL (20.0-40.0); LYMPHOCYTES % (AUTO) 12.8 % (20.5-51.5); MEAN CORPUSCULAR HEMOGLOBIN 33.8 uug (24.7-32.8); MEAN CORPUSCULAR HGB CONC 34 g/dL (32.3-35.6); MONOCYTES # (AUTO) 0.2 K/uL (2.0-10.0); NEUTROPHILS # (AUTO) 5.5 K/uL (1.8-8.9); NEUTROPHILS % (AUTO) 83.3 % (38.5-71.5); PLATELET COUNT (AUTO) 91 K/uL (179-408); RED BLOOD CELL COUNT(AUTO) 4.75 MIL/uL (3.63-4.92); RED CELL DISTRIBUTION WIDTH 14.1 % (12.3-17.7); WHITE BLOOD COUNT (AUTO) 6.6 K/uL (3.8-11.8)
[2016-07-23 07:54] LABS: THYROID STIMULATING HORMONE 0.644 mIU/mL (0.358-3.740)
--- NOTE | 2016-07-23 08:00 | NUR ---
Pt more awake today. Pt's plan of care and interventions for today - aspiration and fall precaution. Pt is in no acute distress. IV x2 on 1 upper and 1 lower arm intact and patent. Call light is within reach.
[2016-07-23 08:29] VITALS: BP 106/46
[2016-07-23] MEDS ORDERED: MEMANTINE HCL 5 MG TABLET PO SCH (09:00)
[2016-07-23] MEDS ORDERED: ropiniROLE 0.25 MG TABLET PO SCH (09:00)
[2016-07-23] MEDS ORDERED: Medication Not On Formulary EA (Multivitamins W-Minerals (Daily Multivitamin-Minerals) 1 PO SCH (09:00)
[2016-07-23] MEDS ORDERED: MEGESTROL ACETATE 400 MG/10 ML LIQUID UDC PO SCH (09:00)
[2016-07-23] MEDS ORDERED: ZINC SULFATE 220 MG CAPSULE PO SCH (09:00)
[2016-07-23] MEDS ORDERED: DONEPEZIL 10 MG TABLET PO SCH (09:00)
[2016-07-23] MEDS ORDERED: ASPIRIN 81 MG TAB.CHEW PO SCH (09:00)
[2016-07-23] MEDS ORDERED: ASCORBIC ACID 500 MG TABLET PO SCH (09:00)
[2016-07-23] MEDS ORDERED: CHOLECALCIFEROL 1,000 UNIT TABLET PO SCH (09:00)
[2016-07-23] MEDS ORDERED: ACETAMINOPHEN 325 MG TABLET PO PRN (09:00)
[2016-07-23] MEDS ORDERED: Medication Not On Formulary EA (Ascorbic Acid (Vitamin C CAPSULE) 500 MG) PO SCH (09:00)
[2016-07-23 09:02] LABS: ALBUMIN 2.8 g/dL (3.4-5.0); BILIRUBIN,TOTAL 0.8 mg/dL (0.2-1.0); CALCIUM 9.6 mg/dL (8.5-10.1); CREATININE 1.1 mg/dL (0.6-1.3); MAGNESIUM 1.5 mg/dL (1.8-2.4); PHOSPHOROUS 3.6 mg/dL (2.5-4.9); POTASSIUM 4.2 mmol/L (3.5-5.1)
[2016-07-23] MEDS: MAGNESIUM SULFATE/D5W 100 ML IV SCH ×2 (10:41→12:40)
[2016-07-23] MEDS ORDERED: MULTIVIT, IRON, MIN NO. 8, FA TABLET PO SCH (11:00)
[2016-07-23 11:01] LABS: BAND % (MANUAL) 35 % (0-10); LYMPHOCYTES % (MANUAL) 16 % (20-40); METAMYELOCYTES % 11 % (0-1); MONOCYTES % (MANUAL) 2 % (2-10); MYELOCYTES % 1 % (0-0); NEUTROPHILS % (MANUAL) 35 % (42-75)
[2016-07-23 11:03] LABS: ANISOCYTOSIS 1+; PLATELET ESTIMATE DECRE
[2016-07-23 12:00] VITALS: BP 114/68
[2016-07-23] MEDS: PROTEIN SUPPLEMENT (PROSTAT) 30 ML LIQUID PO SCH ×2 (12:51→15:43)
[2016-07-23] MEDS: LEVALBUTEROL HCL NEB 0.63 MG/3 ML NEBU NEB SCH ×2 (14:53→19:57)
--- NOTE | 2016-07-23 15:00 | NUR ---
Pt was seen by ST recommends NPO status. Call light is within reach.
[2016-07-23 16:00] VITALS: BP 109/69
--- NOTE | 2016-07-23 16:59 | NUR ---
Clinical Pharmacy Note: Vancomycin Dosing per Pharmacy Subjective: Vancomycin IV to continue on this 86 yo female patient for PNA, UTI, sepsis (waiting for MD note). Objective: BUN 30/Scr 1.1 WBC 6.6 Temperature 98 ht 4' wt 85 lb Assessment/Plan: Will continue vancomycin 500mg IVPB Q38hr for a predicted vancomycin steady state trough level of 15 mcg/ml. First dose was yesterday at 1500. Will draw a vancomycin trough level prior to the 4th dose of vancomycin (not ordered yet). Will monitor renal function and adjust vancomycin dose, if needed, should renal function change significantly. Will follow daily.
[2016-07-23] MEDS: IV D5/ 0.9% NACL 1,000 ML IV PRN (18:18)
--- NOTE | 2016-07-23 18:30 | NUR ---
Pt is in no acute distress. IVF ordered by rubin MISTRY. Call light is within reach.
[2016-07-23] MEDS: IPRATROPIUM BROMIDE 0.5 MG/2.5 ML NEBU NEB PRN (19:57)
--- NOTE | 2016-07-23 20:00 | NUR ---
RECEIVED PATIENT AWAKE IN BED. ALERT TO SELF ONLY. CONFUSED BUT PLEASANT WHEN APPROACHED. NO S/S OF PAIN OR DISCOMFORT. NO RESP. DISTRESS NOTED. VSS. IVF INFUSING WELL TO LEFT UPPER ARM. PATIENT ON AIR MATTRESS. ON O2 3L NC. NO RESP. DISTRESS NOTED. ON TELE A-FIB/A-FLUTTER. BED ALARM .CALL LIGHT IN REACH. ALL NEEDS ATTENDED. WILL CONTINUE TO MONITOR.
[2016-07-23 20:13] VITALS: BP 104/55
[2016-07-23] MEDS ORDERED: ESCITALOPRAM OXALATE 10 MG TABLET PO SCH (21:00)
[2016-07-24 00:36] VITALS: BP 108/54
[2016-07-24] MEDS: LEVALBUTEROL HCL NEB 0.63 MG/3 ML NEBU NEB SCH ×4 (01:04→19:21)
[2016-07-24] MEDS: IPRATROPIUM BROMIDE 0.5 MG/2.5 ML NEBU NEB PRN (01:04)
[2016-07-24 04:00] VITALS: BP 109/64
[2016-07-24] MEDS: VANCOMYCIN IV 500 MG in IV DEXTROSE 5% 100 ML IV SCH (05:53)
--- NOTE | 2016-07-24 06:00 | NUR ---
PATIENT AWAKE IN BED. DENIES PAIN WHEN ASKED. NO S/S OF PAIN OR DISCOMFORT. NO RESP. DISTRESS NOTED. VSS. IVF INFUSING WELL TO LEFT FA #20 GAUGE. BED ALARM ON. CALL LIGHT IN REACH. ALL NEEDS ATTENDED. WILL CONTINUE TO MONITOR.
--- NOTE | 2016-07-24 06:34 | NUR ---
PATIENT ON TELE A-FIB 105.
[2016-07-24] MEDS: PIPERACILLIN/TAZOBACTAM/D5W 2.25 G in PREMIXED 1 EACH IV SCH ×3 (06:45→17:01)
[2016-07-24 06:58] LABS: EOSINOPHILS % (AUTO) 0.1 % (0.0-7.0); HEMATOCRIT 44.6 % (31.2-41.9); HEMOGLOBIN 14.8 g/dL (10.9-14.3); LYMPHOCYTES # (AUTO) 0.4 K/uL (20.0-40.0); LYMPHOCYTES % (AUTO) 6.7 % (20.5-51.5); MEAN CORPUSCULAR HEMOGLOBIN 33.4 uug (24.7-32.8); MEAN CORPUSCULAR HGB CONC 33 g/dL (32.3-35.6); MEAN CORPUSCULAR VOLUME 100.8 fL (75.5-95.3); MONOCYTES # (AUTO) 0.1 K/uL (2.0-10.0); MONOCYTES % (AUTO) 2.3 % (0.0-11.0); NEUTROPHILS # (AUTO) 4.8 K/uL (1.8-8.9); NEUTROPHILS % (AUTO) 90.9 % (38.5-71.5); RED BLOOD CELL COUNT(AUTO) 4.43 MIL/uL (3.63-4.92); RED CELL DISTRIBUTION WIDTH 13.6 % (12.3-17.7); WHITE BLOOD COUNT (AUTO) 5.3 K/uL (3.8-11.8)
[2016-07-24] MEDS ORDERED: PANTOPRAZOLE SODIUM 40 MG TABLET.DR PO SCH (07:00)
[2016-07-24 07:19] LABS: ALBUMIN 2.4 g/dL (3.4-5.0); BILIRUBIN,TOTAL 0.7 mg/dL (0.2-1.0); CREATININE 0.8 mg/dL (0.6-1.3); MAGNESIUM 1.9 mg/dL (1.8-2.4); POTASSIUM 3.2 mmol/L (3.5-5.1); TOTAL PROTEIN, SERUM 6.3 g/dL (6.4-8.2)
[2016-07-24] MEDS: PROTEIN SUPPLEMENT (PROSTAT) 30 ML LIQUID PO SCH ×3 (08:00→16:15)
[2016-07-24] MEDS: DOCUSATE SODIUM 100 MG CAPSULE PO SCH ×2 (08:14→17:00)
[2016-07-24 08:16] LABS: PLATELET COUNT (AUTO) 72 K/uL (179-408)
[2016-07-24] MEDS: MEGESTROL ACETATE 400 MG/10 ML LIQUID UDC PO SCH (08:19)
[2016-07-24] MEDS: ropiniROLE 0.25 MG TABLET PO SCH ×2 (08:19→16:16)
[2016-07-24] MEDS: PANTOPRAZOLE SODIUM 40 MG VIAL IV SCH (08:19)
[2016-07-24] MEDS: MEMANTINE HCL 5 MG TABLET PO SCH ×2 (08:19→19:20)
[2016-07-24] MEDS: ZINC SULFATE 220 MG CAPSULE PO SCH (08:20)
[2016-07-24] MEDS: MULTIVIT, IRON, MIN NO. 8, FA TABLET PO SCH (08:20)
[2016-07-24] MEDS: CARBIDOPA/LEVODOPA 25-100MG TABLET PO SCH ×3 (08:20→16:16)
[2016-07-24] MEDS: CHOLECALCIFEROL 1,000 UNIT TABLET PO SCH (08:20)
[2016-07-24 11:34] VITALS: BP 120/81
[2016-07-24] MEDS: POTASSIUM CHLORIDE 50 ML IV SCH ×4 (12:01→16:12)
--- NOTE | 2016-07-24 13:46 | NUR ---
WOUND CARE CONSULT: PT PRESENTS WITH DEEP TISSUE INJURY IN EVOLUTION TO SACRAL AREA, PRESENT ON ADMISSION. RECOMMENDATIONS MADE FOR WOUND CARE AND SKIN PROTECTION. DISCUSSED WITH NURSING STAFF. PT IS EXTREMELY CACHECTIC. PT ON FIRST STEP MATTRESS. PT TO BE TURNED AND REPOSITIONED EVERY 2 HRS PT CONDITION PERMITS, HEELS FLOATED. ALL SKIN PROTECTION MEASURES IN PLACE. MD IN AGREEMENT WITH PLAN OF CARE. Addendum: 07/24/16 at 1348 by ALMAZ SWANSON RN Amended: Links added.
--- NOTE | 2016-07-24 14:32 | NUR ---
Clinical Pharmacy Note: Vancomycin Dosing per Pharmacy Subjective: Vancomycin IV to continue on this 86 yo female patient for asp PNA, UTI, sepsis. Objective: BUN 24/Scr 0.8 WBC 5.3 Temperature 98.3 ht 5' wt 85 lb Assessment/Plan: Since srcr has slightly decreased, will change vancomycin 500mg IVPB Q38hr to vancomycin 500mg IVPB q35h for a predicted vancomycin steady state trough level of 15.4 mcg/ml. Second dose is due tomorrow at 1600. Will draw a vancomycin trough level prior to the 4th dose of vancomycin (not ordered yet). Will monitor renal function and adjust vancomycin dose, if needed, should renal function change significantly. Will follow daily.
[2016-07-24 15:34] VITALS: BP 115/69
[2016-07-24] MEDS ORDERED: SODIUM PHOSPHATE MM 15 MM in IV DEXTROSE 5% 250 ML IV ONE (16:30)
--- NOTE | 2016-07-24 18:53 | NUR ---
Dr devin hanks aware of family agreeable to possible peg placement. Placed a courtesy call to DR CUENCA @0816 message left to answering machine. Pt is in no acute distress. Call light is within reach.
[2016-07-24 19:00] VITALS: BP 104/58
[2016-07-24] MEDS: IV D5/ 0.9% NACL 1,000 ML IV PRN (19:56)
[2016-07-25] MEDS: PIPERACILLIN/TAZOBACTAM/D5W 2.25 G in PREMIXED 1 EACH IV SCH ×5 (00:20→23:02)
[2016-07-25] MEDS: LEVALBUTEROL HCL NEB 0.63 MG/3 ML NEBU NEB SCH ×4 (01:31→19:39)
[2016-07-25 04:00] VITALS: BP 111/62
--- NOTE | 2016-07-25 05:36 | NUR ---
PATIENT SLEPT WELL, AROUSABLE TO NAME AND TOUCH, NO ACUTE DISTRESS. IV ZOSYN ADMINISTERED ORDERED, NO S/S OF ADVERSE REACTION NOTED. IVF INFUSING, NO S/S OF INFILTRATION. PT TO UNDERGO POSSIBLE EGD W/ PEG INSERTION, CONSENT PENDING. WILL ENDORSE TO AM SHIFT RN. SAFETY MEASURES IN PLACE, BED ALARM ON. WILL CONTINUE TO MONITOR.
[2016-07-25] MEDS ORDERED: ALENDRONATE SODIUM 70 MG TABLET PO SCH (06:00)
--- NOTE | 2016-07-25 06:45 | NUR ---
PREOP CHECKLIST INITIATED FOR POSSIBLE EGD W/PEG. ENDORSED TO THE NEXT SHIFT.
[2016-07-25 06:49] LABS: CALCIUM 8.4 mg/dL (8.5-10.1); CREATININE 0.7 mg/dL (0.6-1.3); PHOSPHOROUS 1.8 mg/dL (2.5-4.9); POTASSIUM 3.7 mmol/L (3.5-5.1)
--- NOTE | 2016-07-25 07:15 | NUR ---
PT RECEIVED IN BED SLEEPING,PT IS NPO FOR SURGERY .V/S ARE STABLE,
[2016-07-25] MEDS: PROTEIN SUPPLEMENT (PROSTAT) 30 ML LIQUID PO SCH ×3 (07:40→16:18)
[2016-07-25] MEDS: DOCUSATE SODIUM 100 MG CAPSULE PO SCH ×2 (08:26→16:18)
[2016-07-25] MEDS: ZINC SULFATE 220 MG CAPSULE PO SCH (08:27)
[2016-07-25] MEDS: MEGESTROL ACETATE 400 MG/10 ML LIQUID UDC PO SCH (08:27)
[2016-07-25] MEDS: ropiniROLE 0.25 MG TABLET PO SCH ×2 (08:27→16:18)
[2016-07-25] MEDS: CHOLECALCIFEROL 1,000 UNIT TABLET PO SCH (08:27)
[2016-07-25] MEDS: CARBIDOPA/LEVODOPA 25-100MG TABLET PO SCH ×3 (08:27→16:18)
[2016-07-25] MEDS: MEMANTINE HCL 5 MG TABLET PO SCH ×2 (08:27→21:00)
[2016-07-25] MEDS: PANTOPRAZOLE SODIUM 40 MG VIAL IV SCH (08:35)
[2016-07-25] MEDS ORDERED: DONEPEZIL 10 MG TABLET PO SCH (09:00)
--- NOTE | 2016-07-25 09:00 | NUR ---
PT SEEN BY DR ELLIOTT
[2016-07-25] MEDS: MULTIVIT, IRON, MIN NO. 8, FA TABLET PO SCH (10:11)
[2016-07-25 11:20] LABS: BASOPHILS % (AUTO) 0.4 % (0.0-2.0); EOSINOPHILS % (AUTO) 0.2 % (0.0-7.0); HEMATOCRIT 42.7 % (31.2-41.9); HEMOGLOBIN 13.7 g/dL (10.9-14.3); LYMPHOCYTES # (AUTO) 0.4 K/uL (20.0-40.0); LYMPHOCYTES % (AUTO) 7.2 % (20.5-51.5); MEAN CORPUSCULAR HEMOGLOBIN 32.4 uug (24.7-32.8); MEAN CORPUSCULAR HGB CONC 32 g/dL (32.3-35.6); MONOCYTES # (AUTO) 0.2 K/uL (2.0-10.0); MONOCYTES % (AUTO) 2.9 % (0.0-11.0); NEUTROPHILS # (AUTO) 5.3 K/uL (1.8-8.9); NEUTROPHILS % (AUTO) 89.3 % (38.5-71.5); PLATELET COUNT (AUTO) 79 K/uL (179-408); RED BLOOD CELL COUNT(AUTO) 4.23 MIL/uL (3.63-4.92); RED CELL DISTRIBUTION WIDTH 13.9 % (12.3-17.7); WHITE BLOOD COUNT (AUTO) 5.9 K/uL (3.8-11.8)
--- NOTE | 2016-07-25 11:30 | NUR ---
PT RESTING IN HER BED SON AT BED SIDE.
[2016-07-25 11:46] VITALS: BP 125/77
[2016-07-25 12:20] LABS: BAND % (MANUAL) 33 % (0-10); LYMPHOCYTES % (MANUAL) 6 % (20-40); MONOCYTES % (MANUAL) 2 % (2-10); NEUTROPHILS % (MANUAL) 59 % (42-75)
[2016-07-25 12:21] LABS: PLATELET ESTIMATE DECREASED
--- NOTE | 2016-07-25 12:39 | NUR ---
Clinical Pharmacy Note: Vancomycin Dosing per Pharmacy Subjective: Vancomycin IV to continue on this 86 yo female patient for asp PNA, UTI, sepsis. Objective: BUN 17/Scr 0.7 WBC 5.9 Temperature 97.8 ht 5' wt 85 lb Assessment/Plan: Will continue same dose of vancomycin 500mg IVPB q35h for today. Second dose is due today at 1600. Will draw a vancomycin trough level prior to the 4th dose of vancomycin (not ordered yet). Will monitor renal function and adjust vancomycin dose, if needed, should renal function change significantly. Will follow daily.
[2016-07-25] MEDS: IV D5 1/2 NS 1000 ML 1,000 ML IV PRN (13:41)
[2016-07-25 15:02] VITALS: BP 97/58
[2016-07-25] MEDS: VANCOMYCIN IV 500 MG in IV DEXTROSE 5% 100 ML IV SCH (15:34)
[2016-07-25] MEDS ORDERED: SODIUM PHOSPHATE MM 15 MM in IV DEXTROSE 5% 250 ML IV ONE (17:00)
[2016-07-25 20:22] VITALS: BP 101/62
[2016-07-25] MEDS ORDERED: ESCITALOPRAM OXALATE 10 MG TABLET PO SCH (21:00)
[2016-07-26] VITALS (7 sets, daily range): BP systolic 105–125; BP diastolic 62–78
[2016-07-26] MEDS: LEVALBUTEROL HCL NEB 0.63 MG/3 ML NEBU NEB SCH ×4 (01:22→19:11)
[2016-07-26] MEDS: PIPERACILLIN/TAZOBACTAM/D5W 2.25 G in PREMIXED 1 EACH IV SCH ×4 (05:06→23:39)
--- NOTE | 2016-07-26 05:35 | NUR ---
Patient slept intermittently, easily arousable by name and touch. Zosyn IVPB administered as ordered, no s/s of adverse reaction noted. Patient kept NPO per MD's order, remains stable, afebrile. Consent for EGD procedure signed and placed in chart. Code status during perioperative period needs to be signed (form placed in chart). Will endorse to the AM shift RN. Addendum: 07/26/16 at 0549 by SILVIA EATON RN Additional: Oral care provided, repositioned patient for comfort.
--- NOTE | 2016-07-26 06:50 | NUR ---
Patient picked up by surgical team via air mattress bed in apparently fair condition. Patient awake, alert, in no acute distress. Appropriate paperwork signed and completed. Patient left with IVF running with oxygen tank set at 3L via NC. Will endorse to the AM shift RN.
[2016-07-26 06:54] LABS: EOSINOPHILS % (AUTO) 0.2 % (0.0-7.0); HEMATOCRIT 41.4 % (31.2-41.9); HEMOGLOBIN 13.5 g/dL (10.9-14.3); LYMPHOCYTES # (AUTO) 0.5 K/uL (20.0-40.0); LYMPHOCYTES % (AUTO) 8.1 % (20.5-51.5); MEAN CORPUSCULAR HEMOGLOBIN 32.8 uug (24.7-32.8); MEAN CORPUSCULAR HGB CONC 33 g/dL (32.3-35.6); MEAN CORPUSCULAR VOLUME 100.9 fL (75.5-95.3); MONOCYTES # (AUTO) 0.2 K/uL (2.0-10.0); MONOCYTES % (AUTO) 3.4 % (0.0-11.0); NEUTROPHILS # (AUTO) 5.2 K/uL (1.8-8.9); NEUTROPHILS % (AUTO) 88.3 % (38.5-71.5); PLATELET COUNT (AUTO) 84 K/uL (179-408); RED CELL DISTRIBUTION WIDTH 13.8 % (12.3-17.7); WHITE BLOOD COUNT (AUTO) 5.9 K/uL (3.8-11.8)
[2016-07-26 07:10] LABS: CREATININE 0.7 mg/dL (0.6-1.3)
[2016-07-26] MEDS ORDERED: PROPOFOL 200 MG/20 ML BOTTLE IV ONE (07:28)
[2016-07-26] MEDS: PROTEIN SUPPLEMENT (PROSTAT) 30 ML LIQUID PO SCH ×3 (08:00→16:31)
--- NOTE | 2016-07-26 08:00 | NUR ---
PT IS BACK FROM PACU. GTUBE IS IS NOTED TO BE INTACT/PATENT. NO RESIDUAL, PLACEMENT IS AUSCULTATED. PROPER PLACEMENT IS NOTED. TUBE FEEDING TO BE STARTED ON 07/27/16. ORDERS ARE NOTED IN THE MEDICAL CHART, DIETARY CONSULT ORDERED, DNR WILL BE RESUMED ON 07/27/2016. SEROSANGUINEOUS DISCHARGE IS NOTED OVER GP DRESSING.
[2016-07-26 08:10] LABS: BAND % (MANUAL) 34 % (0-10); LYMPHOCYTES % (MANUAL) 13 % (20-40); MONOCYTES % (MANUAL) 6 % (2-10); NEUTROPHILS % (MANUAL) 47 % (42-75)
[2016-07-26 08:11] LABS: PLATELET ESTIMATE DECREASED
[2016-07-26] MEDS: MEGESTROL ACETATE 400 MG/10 ML LIQUID UDC PO SCH ×2 (08:57→09:29)
[2016-07-26] MEDS: DOCUSATE SODIUM 100 MG CAPSULE PO SCH ×2 (08:57→09:30)
[2016-07-26] MEDS: ropiniROLE 0.25 MG TABLET PO SCH ×3 (08:57→16:36)
[2016-07-26] MEDS: MEMANTINE HCL 5 MG TABLET PO SCH ×3 (08:57→20:16)
[2016-07-26] MEDS: ZINC SULFATE 220 MG CAPSULE PO SCH ×2 (08:58→09:30)
[2016-07-26] MEDS: CARBIDOPA/LEVODOPA 25-100MG TABLET PO SCH ×4 (08:58→16:36)
[2016-07-26] MEDS: CHOLECALCIFEROL 1,000 UNIT TABLET PO SCH ×2 (08:58→09:30)
[2016-07-26] MEDS: PANTOPRAZOLE SODIUM 40 MG VIAL IV SCH (09:30)
[2016-07-26] MEDS: POTASSIUM CHLORIDE 50 ML IV SCH ×2 (10:08→11:13)
[2016-07-26] MEDS: MULTIVIT, IRON, MIN NO. 8, FA TABLET PO SCH (10:11)
[2016-07-26] MEDS ORDERED: POTASSIUM CHLORIDE 20 MEQ POWDER PACKET GT ONE (12:00)
--- NOTE | 2016-07-26 12:04 | NUR ---
Clinical Pharmacy Note: Vancomycin Dosing per Pharmacy Subjective: Vancomycin IV to continue on this 86 yo female patient for asp PNA, UTI, sepsis. Objective: BUN 13/Scr 0.7 WBC 5.9 Temperature 97.5 ht 5' wt 85 lb Assessment/Plan: Will continue same dose of vancomycin 500mg IVPB q35h for today. Third dose is due tomorrow at 0300. Will draw a vancomycin trough level prior to the 4th dose of vancomycin (not ordered yet). Will monitor renal function and adjust vancomycin dose, if needed, should renal function change significantly. Will follow daily.
[2016-07-26] MEDS: IV D5 1/2 NS 1000 ML 1,000 ML IV PRN (12:33)
[2016-07-26] MEDS ORDERED: SODIUM PHOSPHATE MM 15 MM in IV DEXTROSE 5% 250 ML IV ONE (14:45)
--- NOTE | 2016-07-26 17:23 | NUR ---
WOUND CARE IS DONE ACCORDING TO THE MD ORDER.
--- NOTE | 2016-07-26 19:00 | NUR ---
PT IS LAYING IN BED COMFORTABLY. NO PAIN NOTED. IV INTACT/PATENT. GTUBE IS INTACT/PATENT. GTUBE PLACEMENT IS CONFIRMED. NO RESIDUAL NOTED. ALL SAFETY NEEDS ARE MET. NO S/S OF RESPIRATORY DISTRESS NOTED. NC AT 3L.
--- NOTE | 2016-07-26 19:30 | NUR ---
RESTING IN BED COMFORTABLY IN BED. NO ACUTE DISTRESS NOTED AT THIS TIME. S/P GT PLACEMENT, KEPT PATIENT ON NPO UNTIL DIETARY CONSULT. NO BLEEDING NOTED. POSITIVE PLACEMENT, AUSCULTATED. HOB ELEVATED. PLACED IN A POSITION OF COMFORT. CALL LIGHT WITHIN REACH. WILL CONTINUE TO MONITOR
[2016-07-26] MEDS: DOCUSATE SODIUM 100 MG/10 ML LIQUID UDC GT SCH (20:16)
[2016-07-27] MEDS: LEVALBUTEROL HCL NEB 0.63 MG/3 ML NEBU NEB SCH ×4 (01:11→20:24)
[2016-07-27] MEDS: VANCOMYCIN IV 500 MG in IV DEXTROSE 5% 100 ML IV SCH (03:24)
[2016-07-27 04:00] VITALS: BP 112/65
--- NOTE | 2016-07-27 06:03 | NUR ---
SLEPT INTERMITTENTLY DURING THE SHIFT. NO ACUTE DISTRESS NOTED. GT INTACT, WITH POSITIVE PLACEMENT. ALL DUE MEDS GIVEN ORDERED. TURNED AND REPOSITIONED. KEPT CLEAN AND DRY. CALL LIGHT WITHIN REACH
[2016-07-27] MEDS: PIPERACILLIN/TAZOBACTAM/D5W 2.25 G in PREMIXED 1 EACH IV SCH ×3 (06:18→17:35)
[2016-07-27 06:33] LABS: CALCIUM 7.8 mg/dL (8.5-10.1); CREATININE 0.7 mg/dL (0.6-1.3); PHOSPHOROUS 1.7 mg/dL (2.5-4.9); POTASSIUM 3.6 mmol/L (3.5-5.1)
[2016-07-27] MEDS: PROTEIN SUPPLEMENT (PROSTAT) 30 ML LIQUID PO SCH ×3 (07:24→17:33)
[2016-07-27] MEDS: IPRATROPIUM BROMIDE 0.5 MG/2.5 ML NEBU NEB PRN ×2 (07:41→12:43)
--- NOTE | 2016-07-27 07:47 | NUR ---
PT IS LAYING IN BED COMFORTABLY. NO S/S OF RESPIRATORY DISTRESS NOTED. NO PAIN NOTED. ALL SAFETY NEEDS ARE MET. IV INTACT/PATENT. WILL CONTINUE TO MONITOR.
[2016-07-27] MEDS: MEMANTINE HCL 5 MG TABLET PO SCH ×2 (08:42→20:08)
[2016-07-27] MEDS: CHOLECALCIFEROL 1,000 UNIT TABLET PO SCH (08:42)
[2016-07-27] MEDS: PANTOPRAZOLE SODIUM 40 MG VIAL IV SCH (08:42)
[2016-07-27] MEDS: CARBIDOPA/LEVODOPA 25-100MG TABLET PO SCH ×3 (08:42→17:17)
[2016-07-27] MEDS: MEGESTROL ACETATE 400 MG/10 ML LIQUID UDC PO SCH (08:42)
[2016-07-27] MEDS: ZINC SULFATE 220 MG CAPSULE PO SCH (08:42)
[2016-07-27] MEDS: DOCUSATE SODIUM 100 MG/10 ML LIQUID UDC GT SCH ×2 (08:42→20:08)
[2016-07-27] MEDS: ropiniROLE 0.25 MG TABLET PO SCH ×2 (08:43→17:18)
--- NOTE | 2016-07-27 11:24 | NUR ---
Clinical Pharmacy Note: Vancomycin Dosing per Pharmacy Subjective: Vancomycin IV to continue on this 86 yo female patient for asp PNA, UTI, sepsis. Objective: BUN 12/Scr 0.7 WBC 5.9 (07/26) Temperature 98.1 Assessment/Plan: Will continue same dose of vancomycin 500mg IVPB q35h for today. Third dose was given today at 0300. Will draw a vancomycin trough level prior to the 4th dose of vancomycin (not ordered yet). Will monitor renal function and adjust vancomycin dose, if needed, should renal function change significantly. Will follow daily.
[2016-07-27 11:52] VITALS: BP 105/53
[2016-07-27] MEDS: MULTIVIT, IRON, MIN NO. 8, FA TABLET PO SCH (11:56)
[2016-07-27] MEDS: FIBERSOURCE HN 1000ML LIQUID GT PRN (12:49)
[2016-07-27] MEDS ORDERED: SODIUM PHOSPHATE MM 7.5 MM in IV DEXTROSE 5% 100 ML IV ONE (15:30)
[2016-07-27 15:45] VITALS: BP 98/53
--- NOTE | 2016-07-27 19:34 | NUR ---
NO RESIDUAL IS NOTED. POSITIVE PLACEMENT VIA AUSCULTATION.
--- NOTE | 2016-07-27 19:34 | NUR ---
PT IS LAYING IN BED COMFORTABLY. NO S/S OF RESPIRATORY DISTRESS NOTED. NO PAIN NOTED. ALL SAFETY NEEDS ARE MET.
[2016-07-27 20:00] VITALS: BP 99/54
--- NOTE | 2016-07-27 21:00 | NUR ---
INCREASED GTUBE FEEDING TO 20 CC/HR PRESCRIBED. FEEDING TOLERATED WELL.
[2016-07-28] MEDS: PIPERACILLIN/TAZOBACTAM/D5W 2.25 G in PREMIXED 1 EACH IV SCH ×4 (00:10→17:31)
[2016-07-28] MEDS: LEVALBUTEROL HCL NEB 0.63 MG/3 ML NEBU NEB SCH ×4 (00:48→19:41)
[2016-07-28 04:28] VITALS: BP 94/56
--- NOTE | 2016-07-28 05:00 | NUR ---
INCREASED GTUBE FEEDING TO 30 CC/HR PRESCRIBED. FEEDING TOLERATED WELL. HOB ELEVATED AT ALL TIMES. GTUBE DRESSING CHANGED. SAFETY MAINTAINED.
[2016-07-28 06:25] LABS: CALCIUM 7.7 mg/dL (8.5-10.1); CREATININE 0.6 mg/dL (0.6-1.3); POTASSIUM 3.1 mmol/L (3.5-5.1)
[2016-07-28 07:13] LABS: BASOPHILS % (AUTO) 0.1 % (0.0-2.0); EOSINOPHILS % (AUTO) 0.2 % (0.0-7.0); HEMATOCRIT 38.3 % (31.2-41.9); HEMOGLOBIN 12.5 g/dL (10.9-14.3); LYMPHOCYTES # (AUTO) 0.5 K/uL (20.0-40.0); LYMPHOCYTES % (AUTO) 5.2 % (20.5-51.5); MEAN CORPUSCULAR HEMOGLOBIN 32.5 uug (24.7-32.8); MEAN CORPUSCULAR HGB CONC 33 g/dL (32.3-35.6); MEAN CORPUSCULAR VOLUME 99.6 fL (75.5-95.3); MONOCYTES # (AUTO) 0.2 K/uL (2.0-10.0); MONOCYTES % (AUTO) 2.1 % (0.0-11.0); NEUTROPHILS # (AUTO) 8.9 K/uL (1.8-8.9); NEUTROPHILS % (AUTO) 92.4 % (38.5-71.5); PLATELET COUNT (AUTO) 108 K/uL (179-408); RED BLOOD CELL COUNT(AUTO) 3.84 MIL/uL (3.63-4.92); RED CELL DISTRIBUTION WIDTH 13.7 % (12.3-17.7); WHITE BLOOD COUNT (AUTO) 9.6 K/uL (3.8-11.8)
--- NOTE | 2016-07-28 07:15 | NUR ---
PT RESTING IN BED, AWAKENS TO NAME. NO SIGNS OF ACUTE DISTRESS, GTUBE FEEDING RUNNING, PT TOLERATING WELL. ALL SAFETY AND COMFORT MEASURES ATTENDED TO, WILL CONTINUE TO MONITOR
[2016-07-28] MEDS: IPRATROPIUM BROMIDE 0.5 MG/2.5 ML NEBU NEB PRN ×2 (07:38→19:41)
[2016-07-28] MEDS: MEGESTROL ACETATE 400 MG/10 ML LIQUID UDC PO SCH (08:36)
[2016-07-28] MEDS: MEMANTINE HCL 5 MG TABLET PO SCH ×2 (08:37→20:36)
[2016-07-28] MEDS: DOCUSATE SODIUM 100 MG/10 ML LIQUID UDC GT SCH ×2 (08:37→20:36)
[2016-07-28] MEDS: CHOLECALCIFEROL 1,000 UNIT TABLET PO SCH (08:37)
[2016-07-28] MEDS: ZINC SULFATE 220 MG CAPSULE PO SCH (08:37)
[2016-07-28] MEDS: PANTOPRAZOLE SODIUM 40 MG VIAL IV SCH (08:37)
[2016-07-28] MEDS: CARBIDOPA/LEVODOPA 25-100MG TABLET PO SCH ×3 (08:38→16:28)
[2016-07-28] MEDS: ropiniROLE 0.25 MG TABLET PO SCH ×2 (08:40→16:28)
[2016-07-28] MEDS: IV D5 1/2 NS 1000 ML 1,000 ML IV PRN (09:31)
[2016-07-28] MEDS: PROTEIN SUPPLEMENT (PROSTAT) 30 ML LIQUID PO SCH ×3 (09:59→16:28)
--- NOTE | 2016-07-28 09:59 | NUR ---
PROSTAT GIVEN LATE, NONE IN MED ROOM DURING MORNING MEDICATION PASS
[2016-07-28] MEDS: MULTIVIT, IRON, MIN NO. 8, FA TABLET PO SCH (11:03)
[2016-07-28 11:56] VITALS: BP 106/60
[2016-07-28] MEDS: POTASSIUM CHLORIDE 50 ML IV SCH ×3 (13:04→15:08)
--- NOTE | 2016-07-28 13:25 | NUR ---
GTUBE RESIDUAL 60CC AT 1200, RECHECKED AT 1300 AND 50CC. TURNED TUBE FEEDING DOWN TO 20CC. PT HAS NOT HAD BM SINCE 07/26. MILK OF MG GIVEN, WILL CONTINUE TO MONITOR
--- NOTE | 2016-07-28 15:20 | NUR ---
Clinical Pharmacy Note: Vancomycin Dosing per Pharmacy Subjective: Vancomycin IV to continue on this 86 yo female patient for asp PNA, UTI, sepsis. Objective: BUN 13/Scr 0.6 WBC 9.6 Temperature 97.6 Trough: 1.3 (today @1330) Random: 2.3 (today's am labs) Assessment/Plan: Due to very low level trough, ordered random from am labs as well. Levels consistent, rescheduled regimen to 750mg Q22hrs for expected trough of 15.12. First dose due today at 1530. Will draw a vancomycin trough level prior to the 4th dose of vancomycin (not ordered yet). Will monitor renal function and adjust vancomycin dose, if needed, should renal function change significantly. Will follow daily.
[2016-07-28 16:10] VITALS: BP 109/73
[2016-07-28] MEDS: VANCOMYCIN IV 750 MG in IV DEXTROSE 5% 250 ML IV SCH (16:11)
--- NOTE | 2016-07-28 16:45 | NUR ---
GTUBE RESIDUAL CHECKED, 40CC. IV ABX RUNNING AT THIS TIME, WILL RESUME KCL IV WHEN FINISHED.
--- NOTE | 2016-07-28 17:23 | NUR ---
SPOKE WITH REGINA FROM PHARMACY, WILL CHANGE THE REMAINING 3 BAGS OF IV KCL TO ADMINISTER THROUGH GTUBE
[2016-07-28] MEDS ORDERED: POTASSIUM CHLORIDE 20 MEQ POWDER PACKET GT ONE (17:30)
[2016-07-28 20:00] VITALS: BP 106/57
--- NOTE | 2016-07-28 20:00 | NUR ---
RECEIVED PATIENT AWAKE IN BED. PATIENT IS ALERT TO SELF. NO S/S OF PAIN OR DISCOMFORT. NO FACIAL GRIMACE NOTED. NO RESP. DISTRESS NOTED. CONTINUED ON O2 4L NC. VSS. NEW IV HEPLOCK STARTED TO LEFT FA #20 GAUGE WITH IVF INFUSING. GT FEEDING INFUSING. NO ASPIRATION NOTED. WILL CONTINUE TO MONITOR. BED ALARM ON. ALL NEEDS ATTENDED. CALL LIGHT IN REACH.
[2016-07-29] MEDS: LEVALBUTEROL HCL NEB 0.63 MG/3 ML NEBU NEB SCH ×4 (01:00→19:25)
[2016-07-29] MEDS: IPRATROPIUM BROMIDE 0.5 MG/2.5 ML NEBU NEB PRN ×4 (01:01→19:25)
[2016-07-29 04:55] VITALS: BP 99/61
[2016-07-29] MEDS: PIPERACILLIN/TAZOBACTAM/D5W 2.25 G in PREMIXED 1 EACH IV SCH ×6 (05:20→23:27)
[2016-07-29] MEDS: PANTOPRAZOLE ORAL SUSPENSION 40 MG SUSPDR.PKT GT SCH (05:32)
--- NOTE | 2016-07-29 06:46 | NUR ---
PATIENT ASLEEP IN BED. SLEPT WELL THROUGHOUT THE NIGHT. VSS. NO RESP. DISTRESS NOTED. NO S/S OF PAIN OR DISCOMFORT. SUCTIONED PRN. REPOSITIONED TO SIDE. BED ALARM ON. CALL LIGHT IN REACH. ALL NEEDS ATTENDED. WILL CONTINUE TO MONITOR.
[2016-07-29 07:17] LABS: CALCIUM 7.8 mg/dL (8.5-10.1); CREATININE 0.6 mg/dL (0.6-1.3); POTASSIUM 4.2 mmol/L (3.5-5.1)
[2016-07-29] MEDS: PROTEIN SUPPLEMENT (PROSTAT) 30 ML LIQUID PO SCH ×3 (09:00→17:54)
[2016-07-29] MEDS: CHOLECALCIFEROL 1,000 UNIT TABLET PO SCH (09:03)
[2016-07-29] MEDS: DOCUSATE SODIUM 100 MG/10 ML LIQUID UDC GT SCH ×2 (09:03→20:49)
[2016-07-29] MEDS: MEGESTROL ACETATE 400 MG/10 ML LIQUID UDC PO SCH (09:03)
[2016-07-29] MEDS: ropiniROLE 0.25 MG TABLET PO SCH ×2 (09:03→17:48)
[2016-07-29] MEDS: CARBIDOPA/LEVODOPA 25-100MG TABLET PO SCH ×3 (09:03→17:48)
[2016-07-29] MEDS: ZINC SULFATE 220 MG CAPSULE PO SCH (09:03)
[2016-07-29] MEDS: MEMANTINE HCL 5 MG TABLET PO SCH ×2 (09:04→20:49)
[2016-07-29] MEDS: MULTIVIT, IRON, MIN NO. 8, FA TABLET PO SCH (11:39)
[2016-07-29 11:49] VITALS: BP 110/53
[2016-07-29] MEDS: VANCOMYCIN IV 750 MG in IV DEXTROSE 5% 250 ML IV SCH (13:30)
--- NOTE | 2016-07-29 14:06 | NUR ---
AMBULANCE STAFF HERE, PT SAT 87% AND HR 140. PT JUST HAD BREATHING TREATMENT AND WAS SUCTIONED. O2 AT 5L, SON AT BEDSIDE, WILL MONITOR CLOSELY
--- NOTE | 2016-07-29 14:39 | NUR ---
SPOKE WITH DR ELLIOTT, WILL KEEP PT OVERNIGHT TO MONITOR. HR 145 SAT 91% ON 6LNC. CHARGE NURSE AWARE PT ON TELE MONITOR WILL MONITOR CLOSELY
[2016-07-29] MEDS: FIBERSOURCE HN 1000ML LIQUID GT PRN (14:54)
[2016-07-29] MEDS ORDERED: METOPROLOL SUCCINATE XL 25 MG TAB.SR.24H PO SCH (15:30)
[2016-07-29] MEDS: METOPROLOL TARTRATE 25 MG TABLET PO SCH ×2 (15:50→21:00)
[2016-07-29 16:10] VITALS: BP 109/69
--- NOTE | 2016-07-29 16:18 | NUR ---
Clinical Pharmacy Note: Vancomycin Dosing per Pharmacy Subjective: Vancomycin IV to continue on this 86 yo female patient for asp PNA, UTI, sepsis. Objective: BUN 15/Scr 0.6 WBC 9.6 (07/28) Temperature 98.1 Trough: 1.3 (07/28 @1330) Assessment/Plan: Will continue vanco 750mg Q22hrs for expected trough of 15.12. Second dose due today at 1330. Will draw a vancomycin trough level prior to the 4th dose of vancomycin (not ordered yet). Will monitor renal function and adjust vancomycin dose, if needed, should renal function change significantly. Will follow daily.
--- NOTE | 2016-07-29 16:19 | NUR ---
PT GIVEN MEDICATION PER DR BERMUDEZ ORDERS. PT HR 111
[2016-07-29] MEDS ORDERED: LEVOFLOXACIN 750MG/D5W 750 MG in PREMIXED 1 EACH IV SCH (17:15)
[2016-07-29] MEDS: LEVOFLOXACIN 750MG/D5W 750 MG in PREMIXED 1 EACH IV SCH (18:25)
--- NOTE | 2016-07-29 18:30 | NUR ---
PT HR IN 90'S, SAT 92% ON 5L NC. AWAKE IN BED. ALL DUE MEDICATIONS GIVEN, DR ELLIOTT CALLED WITH RESULTS OF CXR AND ORDERED ABX. ABX RUNNING AT THIS TIME, INFUSING WELL. GTUBE FEEDINGS TURNED OFF AT 1600 DUE TO 50CC RESIDUAL. NO RESIDUAL AT THIS TIME, WILL RESUME TUBE FEEDINGS AND MONITOR CLOSELY
[2016-07-29 20:36] VITALS: BP 101/56
[2016-07-30 00:23] VITALS: BP 109/63
[2016-07-30 00:24] VITALS: BP 118/77
[2016-07-30] MEDS: LEVALBUTEROL HCL NEB 0.63 MG/3 ML NEBU NEB SCH ×4 (01:24→19:55)
[2016-07-30] MEDS: IPRATROPIUM BROMIDE 0.5 MG/2.5 ML NEBU NEB PRN ×2 (01:24→07:32)
[2016-07-30] MEDS: IV D5 1/2 NS 1000 ML 1,000 ML IV PRN (03:19)
[2016-07-30 04:00] VITALS: BP 118/71
--- NOTE | 2016-07-30 05:30 | NUR ---
Patient is on tele Afib/Aflutter, in no acute distress. Will continue to monitor.
--- NOTE | 2016-07-30 05:31 | NUR ---
Patient slept intermittently, in no acute distress, no sob. Occasional productive cough noted, breathing treatment provided by RT, suctioned as needed, oral care provided, repositioned for comfort. IVF infusing, tolerating GTF, HOB elevated, aspiration precaution observed. Will continue to monitor.
[2016-07-30] MEDS: PIPERACILLIN/TAZOBACTAM/D5W 2.25 G in PREMIXED 1 EACH IV SCH (05:45)
[2016-07-30] MEDS: PANTOPRAZOLE ORAL SUSPENSION 40 MG SUSPDR.PKT GT SCH (05:45)
--- NOTE | 2016-07-30 08:00 | NUR ---
Pt is in no acute distress. Noted 40cc of residual from gt feeding - notified dr beltran. Pt suctioned and got thick mucus. Will maintain airway and suction as needed. Pt is in no acute distress. Call light is within reach.
[2016-07-30] MEDS: MEMANTINE HCL 5 MG TABLET PO SCH ×2 (09:01→20:58)
[2016-07-30] MEDS: MULTIVIT, IRON, MIN NO. 8, FA TABLET PO SCH (09:01)
[2016-07-30] MEDS: CARBIDOPA/LEVODOPA 25-100MG TABLET PO SCH ×3 (09:01→16:21)
[2016-07-30] MEDS: ZINC SULFATE 220 MG CAPSULE PO SCH (09:01)
[2016-07-30] MEDS: PROTEIN SUPPLEMENT (PROSTAT) 30 ML LIQUID PO SCH ×3 (09:02→16:21)
[2016-07-30] MEDS: METOPROLOL TARTRATE 25 MG TABLET PO SCH ×3 (09:02→21:02)
[2016-07-30] MEDS: MEGESTROL ACETATE 400 MG/10 ML LIQUID UDC PO SCH (09:02)
[2016-07-30] MEDS: DOCUSATE SODIUM 100 MG/10 ML LIQUID UDC GT SCH ×2 (09:02→20:59)
[2016-07-30] MEDS: ropiniROLE 0.25 MG TABLET PO SCH ×2 (09:05→16:21)
[2016-07-30] MEDS: CHOLECALCIFEROL 1,000 UNIT TABLET PO SCH (09:06)
[2016-07-30] MEDS ORDERED: LEVALBUTEROL HCL NEB 0.63 MG/3 ML NEBU NEB PRN (11:15)
--- NOTE | 2016-07-30 11:29 | NUR ---
Clinical Pharmacy Note: Vancomycin Dosing per Pharmacy Subjective: Vancomycin IV to continue on this 86 yo female patient for asp PNA, UTI, sepsis. Objective: BUN 15/Scr 0.6 WBC 9.6 (07/28) Temperature 98.1 Assessment/Plan: Will continue vanco 750mg Q22hrs for expected trough of 15.12 for today. Third dose due today at 1130. Will draw a vancomycin trough level prior to the 4th dose of vancomycin (ordered for 07/31 at 0900). Will monitor renal function and adjust vancomycin dose, if needed, should renal function change significantly. Will follow daily.
[2016-07-30 11:35] VITALS: BP 108/60
[2016-07-30] MEDS: VANCOMYCIN IV 750 MG in IV DEXTROSE 5% 250 ML IV SCH (12:29)
--- NOTE | 2016-07-30 13:00 | NUR ---
Dr beltran spoke with son in details of possible plan for hospice.
[2016-07-30] MEDS: PIPERACILLIN/TAZOBACTAM/D5W 3.375 G in PREMIXED 1 EACH IV SCH ×2 (14:29→21:02)
[2016-07-30 15:57] VITALS: BP 108/61
--- NOTE | 2016-07-30 18:30 | NUR ---
GT feed turned off @ 1600 -8pm as ordered. Did not increase gt feed secondary to pt not tolerating feed. Rechecked gt residual again with only 15cc. Pt IV was d/c earlier @ 10am per dr Bettencourt order to help decreased congestion.
[2016-07-30 20:00] VITALS: BP 103/58
--- NOTE | 2016-07-30 20:00 | NUR ---
Received pt in bed resting with eyes closed, easy to arouse. Even and nonlabored breathing observed. On 2L O2 via nc. GT restarted as per order, residual of 5cc at this time. HOB elevated, aspiration precaution maintained. Call light is within reach. safety measures in place. will continue to monitor.
[2016-07-30] MEDS: FIBERSOURCE HN 1000ML LIQUID GT PRN (22:46)
[2016-07-31] VITALS: BP 106/59
[2016-07-31] MEDS: LEVALBUTEROL HCL NEB 0.63 MG/3 ML NEBU NEB SCH ×4 (00:40→19:50)
[2016-07-31 04:00] VITALS: BP 99/57
[2016-07-31 05:23] VITALS: BP 116/73
[2016-07-31] MEDS: PIPERACILLIN/TAZOBACTAM/D5W 3.375 G in PREMIXED 1 EACH IV SCH ×3 (05:33→22:10)
[2016-07-31] MEDS: PANTOPRAZOLE ORAL SUSPENSION 40 MG SUSPDR.PKT GT SCH (05:33)
[2016-07-31] MEDS: METOPROLOL TARTRATE 25 MG TABLET PO SCH ×3 (05:34→22:07)
--- NOTE | 2016-07-31 06:05 | NUR ---
End of shift note: pt slept well, in no acute distress per shift. on GT feeding tolerating well, with no residual noted this am. Kept clean and dry, wound tx as ordered. Suctioned prn, with small thick white sputum. On tele, hr-90. All needs met. Safety maintained. Will continue to monitor.
[2016-07-31] MEDS: PROTEIN SUPPLEMENT (PROSTAT) 30 ML LIQUID PO SCH ×3 (08:23→16:29)
[2016-07-31] MEDS: DOCUSATE SODIUM 100 MG/10 ML LIQUID UDC GT SCH ×2 (08:24→21:58)
[2016-07-31] MEDS: ropiniROLE 0.25 MG TABLET PO SCH ×2 (08:24→16:30)
[2016-07-31] MEDS: CHOLECALCIFEROL 1,000 UNIT TABLET PO SCH (08:25)
[2016-07-31] MEDS: MEMANTINE HCL 5 MG TABLET PO SCH ×2 (08:25→21:58)
[2016-07-31] MEDS: CARBIDOPA/LEVODOPA 25-100MG TABLET PO SCH ×3 (08:25→16:30)
[2016-07-31] MEDS: MEGESTROL ACETATE 400 MG/10 ML LIQUID UDC PO SCH (08:25)
[2016-07-31] MEDS: ZINC SULFATE 220 MG CAPSULE PO SCH (08:25)
[2016-07-31 09:35] LABS: EOSINOPHILS % (AUTO) 0.5 % (0.0-7.0); HEMATOCRIT 40.5 % (31.2-41.9); HEMOGLOBIN 13.5 g/dL (10.9-14.3); LYMPHOCYTES # (AUTO) 0.7 K/uL (20.0-40.0); LYMPHOCYTES % (AUTO) 6.8 % (20.5-51.5); MEAN CORPUSCULAR HEMOGLOBIN 33.1 uug (24.7-32.8); MEAN CORPUSCULAR HGB CONC 33 g/dL (32.3-35.6); MEAN CORPUSCULAR VOLUME 99.2 fL (75.5-95.3); MONOCYTES # (AUTO) 0.7 K/uL (2.0-10.0); MONOCYTES % (AUTO) 6.7 % (0.0-11.0); NEUTROPHILS # (AUTO) 8.6 K/uL (1.8-8.9); PLATELET COUNT (AUTO) 193 K/uL (179-408); RED BLOOD CELL COUNT(AUTO) 4.08 MIL/uL (3.63-4.92); RED CELL DISTRIBUTION WIDTH 13.8 % (12.3-17.7)
[2016-07-31 10:06] LABS: CALCIUM 8.7 mg/dL (8.5-10.1); CREATININE 0.7 mg/dL (0.6-1.3); POTASSIUM 4.4 mmol/L (3.5-5.1)
[2016-07-31] MEDS: MULTIVIT, IRON, MIN NO. 8, FA TABLET PO SCH (10:23)
[2016-07-31 11:31] VITALS: BP 104/61
[2016-07-31] MEDS: VANCOMYCIN IV 750 MG in IV DEXTROSE 5% 250 ML IV SCH (11:37)
[2016-07-31 12:02] LABS: ALBUMIN 1.6 g/dL (3.4-5.0); ALKALINE PHOSPHATASE 72 U/L (50-136); ASPARTATE AMINOTRANSFERASE 47 U/L (15-37); BILIRUBIN,DIRECT 0.3 mg/dL (0.0-0.2); BILIRUBIN,TOTAL 0.9 mg/dL (0.2-1.0); MAGNESIUM 1.9 mg/dL (1.8-2.4); PHOSPHOROUS 2.6 mg/dL (2.5-4.9); TOTAL PROTEIN, SERUM 6.2 g/dL (6.4-8.2)
[2016-07-31 12:15] LABS: ALANINE AMINOTRANSFERASE < 6 U/L (14-59)
--- NOTE | 2016-07-31 12:47 | NUR ---
Clinical Pharmacy Note: Vancomycin Dosing per Pharmacy Subjective: Vancomycin IV to continue on this 86 yo female patient for asp PNA, UTI, sepsis. Objective: BUN 12/Scr 0.7 WBC 10 Temperature 98.5 Vancomycin trough level: 6.7 Assessment/Plan: Since vancomycin trough level is sub-therapeutic, will change dose of vancomycin from 750mg Q22hrs to vancomycin 750mg IVPB q16hr for expected trough of 15 mcg/ml at steady state. First dose is due today at 1200. Will draw a vancomycin trough level prior to the 4th dose of vancomycin (not yet ordered). Will monitor renal function and adjust vancomycin dose, if needed, should renal function change significantly. Will follow daily.
[2016-07-31 15:30] VITALS: BP 110/64
--- NOTE | 2016-07-31 17:22 | NUR ---
Patient been in bed resting intermittently during the day. No s/s of distress and pain noted. 3L via NC maintained. Feeding continue to beep all day. Pump changed. 8CC residual from feeding, patient seem to been tolerated well the nutrition. Family members at the bedside. Comfort and safety provided. Will continue monitoring.
[2016-07-31] MEDS: LEVOFLOXACIN 750MG/D5W 750 MG in PREMIXED 1 EACH IV SCH (18:56)
[2016-07-31 20:00] VITALS: BP 106/61
[2016-08-01] VITALS: BP 102/64
[2016-08-01] MEDS: LEVALBUTEROL HCL NEB 0.63 MG/3 ML NEBU NEB SCH ×4 (01:00→19:34)
[2016-08-01] MEDS: VANCOMYCIN IV 750 MG in IV DEXTROSE 5% 250 ML IV SCH ×2 (03:00→19:45)
--- NOTE | 2016-08-01 03:30 | NUR ---
GT RESIDUAL AT 80CC, TURNED OFF GTF, WILL RECHECK IN 1 HR.
[2016-08-01 04:00] VITALS: BP 151/86
--- NOTE | 2016-08-01 04:00 | NUR ---
PATIENT AWAKE, ALERT, BREATHING RAPIDLY, IN RESPIRATORY DISTRESS, DIAPHORETIC STATE. O2 SAT OF 74% VIA 4L/NC. BP 152/95, IN 142, BLOOD GLUCOSE 139. CALLED RAPID RESPONSE TEAM. PATIENT WAS PLACED ON NRM 15L.
[2016-08-01] MEDS: MORPHINE SULFATE 2 MG/1 ML DISP.SYRIN IV PRN (04:25)
[2016-08-01 04:45] LABS: BASOPHILS # (AUTO) 0.1 K/uL (0.0-8.0); BASOPHILS % (AUTO) 0.8 % (0.0-2.0); EOSINOPHILS % (AUTO) 0.3 % (0.0-7.0); HEMATOCRIT 37.6 % (31.2-41.9); HEMOGLOBIN 12.2 g/dL (10.9-14.3); LYMPHOCYTES # (AUTO) 0.4 K/uL (20.0-40.0); LYMPHOCYTES % (AUTO) 4.7 % (20.5-51.5); MEAN CORPUSCULAR HEMOGLOBIN 32.1 uug (24.7-32.8); MEAN CORPUSCULAR HGB CONC 33 g/dL (32.3-35.6); MEAN CORPUSCULAR VOLUME 98.5 fL (75.5-95.3); MONOCYTES # (AUTO) 0.5 K/uL (2.0-10.0); MONOCYTES % (AUTO) 5.8 % (0.0-11.0); NEUTROPHILS # (AUTO) 7.9 K/uL (1.8-8.9); NEUTROPHILS % (AUTO) 88.4 % (38.5-71.5); PLATELET COUNT (AUTO) 221 K/uL (179-408); RED BLOOD CELL COUNT(AUTO) 3.82 MIL/uL (3.63-4.92); RED CELL DISTRIBUTION WIDTH 13.9 % (12.3-17.7); WHITE BLOOD COUNT (AUTO) 8.9 K/uL (3.8-11.8)
[2016-08-01 04:55] LABS: ALANINE AMINOTRANSFERASE < 6 U/L (14-59); ALBUMIN 1.6 g/dL (3.4-5.0); ALKALINE PHOSPHATASE 76 U/L (50-136); ASPARTATE AMINOTRANSFERASE 25 U/L (15-37); BILIRUBIN,TOTAL 1.1 mg/dL (0.2-1.0); CALCIUM 8.5 mg/dL (8.5-10.1); CHLORIDE 102 mmol/L (98-107); CREATININE 0.7 mg/dL (0.6-1.3); GLUCOSE 143 mg/dL (74-106); MAGNESIUM 1.8 mg/dL (1.8-2.4); PHOSPHOROUS 3.3 mg/dL (2.5-4.9); POTASSIUM 4.1 mmol/L (3.5-5.1); SODIUM SERUM 139 mmol/L (136-145); UREA NITROGEN, BLOOD 14 mg/dL (7-18)
[2016-08-01 04:59] LABS: CARBON DIOXIDE 36 mmol/L (21-32)
[2016-08-01] MEDS: PANTOPRAZOLE ORAL SUSPENSION 40 MG SUSPDR.PKT GT SCH (05:19)
[2016-08-01] MEDS: PIPERACILLIN/TAZOBACTAM/D5W 3.375 G in PREMIXED 1 EACH IV SCH ×3 (05:19→21:03)
[2016-08-01] MEDS: METOPROLOL TARTRATE 25 MG TABLET PO SCH ×3 (05:21→22:57)
--- NOTE | 2016-08-01 05:30 | NUR ---
PT ON NRM AT 15L, RESTING IN BED, EASILY AROUSABLE. GTF DOWN TO 30CC/HR DUE TO PT NOT TOLERATING 10CC INCREASE, NO RESIDUAL NOTED. WILL CONTINUE TO MONITOR.
--- NOTE | 2016-08-01 06:00 | NUR ---
HELD GTF DUE TO PATIENT STILL HAVING SOB. WILL CONTINUE TO MONITOR
--- NOTE | 2016-08-01 06:30 | NUR ---
CALLED REX NARANJO NP TO RELAY RESULTS OF CXR, D-DIMER & TROPONIN. NEW ORDERS FOR ABG TAKEN AND CARRIED OUT. RECOMMENDED TO REX FOR LASIX BUT NO ORDERS WERE GIVEN AT THIS TIME. WILL ENDORSE TO AM SHIFT RN.
[2016-08-01 07:05] LABS: ABG BASE EXCESS 4.9 mmol/L; ABG HCO3 31.3 mmol/L; ABG PCO2 54.1 mmHg (35.0-45.0); ABG PO2 80.1 mmHg (75.0-100.0); ABG SITE LEFT RADIAL; ABG TOTAL HEMOGLOBIN 12.7 G/dL (12.0-16.0); COHb 1.1 % (0.5-1.5); MetHb 0.1 % (0.0-1.5); O2Hb 94.3 % (94.0-97.0)
--- NOTE | 2016-08-01 07:45 | NUR ---
PT ON NON REBREATHER 15L SAT 93%, HR 92 ON TELE MONITOR. RT IN ROOM WITH PT. ABG AND CXR DONE, RESULTS CALLED TO DR ANTHONY, NO NEW ORDERS AT THIS TIME. TUBE FEEDING TURNED OFF AT THIS TIME FOR CT SCAN, PT AWAKE AND FOLLOWS COMMANDS WILL CONTINUE TO MONITOR CLOSELY
[2016-08-01] MEDS: DOCUSATE SODIUM 100 MG/10 ML LIQUID UDC GT SCH ×2 (08:52→21:03)
[2016-08-01] MEDS: MEGESTROL ACETATE 400 MG/10 ML LIQUID UDC PO SCH (08:52)
[2016-08-01] MEDS: PROTEIN SUPPLEMENT (PROSTAT) 30 ML LIQUID PO SCH ×3 (08:53→17:03)
[2016-08-01] MEDS: ZINC SULFATE 220 MG CAPSULE PO SCH (08:53)
[2016-08-01] MEDS: CARBIDOPA/LEVODOPA 25-100MG TABLET PO SCH ×3 (08:53→17:03)
[2016-08-01] MEDS: ropiniROLE 0.25 MG TABLET PO SCH ×2 (08:53→17:03)
[2016-08-01] MEDS: CHOLECALCIFEROL 1,000 UNIT TABLET PO SCH (08:53)
[2016-08-01] MEDS: MEMANTINE HCL 5 MG TABLET PO SCH ×2 (08:53→21:03)
[2016-08-01] MEDS ORDERED: METOCLOPRAMIDE HCL 10 MG/2 ML VIAL IV SCH (10:00)
[2016-08-01] MEDS ORDERED: IOHEXOL 350 100 ML INFUS..BTL ONE (10:54)
[2016-08-01] MEDS ORDERED: IV NORMAL SALINE 250 ML IV ONE (10:54)
[2016-08-01] MEDS ORDERED: ALENDRONATE SODIUM 70 MG TABLET PO SCH (11:05)
--- NOTE | 2016-08-01 11:15 | NUR ---
PT OFF FLOOR FOR CTA SCAN
[2016-08-01 11:16] VITALS: BP 100/58
--- NOTE | 2016-08-01 11:38 | NUR ---
PT BACK IN ROOM, SAT 93 ON 5LNC HR 94. IN NO ACUTE DISTRESS, IV INTACT AND PATENT, WILL ADMINISTER ALL DUE MEDS
[2016-08-01] MEDS: METOCLOPRAMIDE HCL 10 MG/2 ML VIAL IV SCH ×3 (11:41→21:03)
[2016-08-01] MEDS: MULTIVIT, IRON, MIN NO. 8, FA TABLET PO SCH (11:41)
--- NOTE | 2016-08-01 11:47 | NUR ---
Clinical Pharmacy Note: Vancomycin Dosing per Pharmacy Subjective: Vancomycin IV to continue on this 86 yo female patient for asp PNA, UTI, sepsis. Objective: BUN 14/Scr 0.7 WBC 8.9 Temperature 98.1 Assessment/Plan: Will continue vancomycin 750mg IVPB q16hr for expected trough of 15 mcg/ml at steady state. Will draw a vancomycin trough level prior to the 4th dose of vancomycin (ordered for tomorrow @1030). Will check trough in am and readjust as appropriate. Will monitor renal function and adjust vancomycin dose, if needed, should renal function change significantly. Will follow daily. Addendum: 08/01/16 at 1222 by REGINA DANIELS ADM CORRECTION, TROUGH DUE FOR TOMORROW 1130 (NOT 1030)
--- NOTE | 2016-08-01 14:33 | NUR ---
NO RESIDUAL AT THIS TIME WILL RESUME GT FEEDING AT 10CC/HR AND RECHECK RESIDUAL IN 2 HOURS. RT JUST FINISHED BREATHING TREATMENT AND SUCTIONING, PT TOLERATED WELL, IN NO ACUTE DISTRESS, WATCHING TV. WILL CONTINUE TO MONITOR
[2016-08-01 15:46] VITALS: BP 102/65
--- NOTE | 2016-08-01 16:30 | NUR ---
NO RESIDUAL AT THIS TIME. PT TOLERATING 10CC/HR, ALL DUE MEDS GIVEN, PT AWAKE IN BED, TRYING TO TAKE OFF SCD'S AND O2 AND GOWN. NEEDS FREQUENT REDIRECTION. ON 4LNC SAT 96%, WILL CONTINUE TO MONITOR.
[2016-08-01 20:00] VITALS: BP 103/57
[2016-08-02] MEDS: LEVALBUTEROL HCL NEB 0.63 MG/3 ML NEBU NEB SCH ×4 (01:00→19:49)
[2016-08-02 04:00] VITALS: BP 99/56
[2016-08-02] MEDS: METOCLOPRAMIDE HCL 10 MG/2 ML VIAL IV SCH ×2 (05:10→14:17)
[2016-08-02] MEDS: PANTOPRAZOLE ORAL SUSPENSION 40 MG SUSPDR.PKT GT SCH (05:10)
[2016-08-02] MEDS: PIPERACILLIN/TAZOBACTAM/D5W 3.375 G in PREMIXED 1 EACH IV SCH ×2 (05:10→14:17)
[2016-08-02] MEDS: METOPROLOL TARTRATE 25 MG TABLET PO SCH ×2 (06:00→14:00)
--- NOTE | 2016-08-02 06:33 | NUR ---
PATIENT SLEPT INTERMITTENTLY, IN NO ACUTE DISTRESS. TOLERATING GTF AT 30CC/HR WITH <10CC RESIDUAL, HOB ELEVATED, ASPIRATION PRECAUTION. PATIENT KEPT CLEAN/DRY, ORAL/SKIN CARE PROVIDED, REPOSITIONED FOR COMFORT. WILL CONTINUE TO MONITOR.
[2016-08-02] MEDS: DOCUSATE SODIUM 100 MG/10 ML LIQUID UDC GT SCH (08:56)
[2016-08-02] MEDS: PROTEIN SUPPLEMENT (PROSTAT) 30 ML LIQUID PO SCH ×3 (08:56→17:00)
[2016-08-02] MEDS: CHOLECALCIFEROL 1,000 UNIT TABLET PO SCH (08:57)
[2016-08-02] MEDS: CARBIDOPA/LEVODOPA 25-100MG TABLET PO SCH ×3 (08:57→17:45)
[2016-08-02] MEDS: ZINC SULFATE 220 MG CAPSULE PO SCH (08:57)
[2016-08-02] MEDS: MEMANTINE HCL 5 MG TABLET PO SCH (08:57)
[2016-08-02] MEDS: MEGESTROL ACETATE 400 MG/10 ML LIQUID UDC PO SCH (08:57)
[2016-08-02] MEDS: ropiniROLE 0.25 MG TABLET PO SCH ×2 (08:57→17:45)
--- NOTE | 2016-08-02 11:45 | NUR ---
RED CROSS WORKER GETTING ROUTINE VITALS, PT SAT HIGH 70'S LOW 80'S. PT STATES SHORT OF BREATH AND PT IS DIAPHORETIC, HR 115, SAT PT UP AND INCREASED O2 TO 5LNC RT CALLED FOR BREATHING TREATMENT
[2016-08-02 11:47] VITALS: BP 118/61
[2016-08-02] MEDS: MULTIVIT, IRON, MIN NO. 8, FA TABLET PO SCH (12:03)
--- NOTE | 2016-08-02 12:39 | NUR ---
RT SUCTIONED AND GAVE PT BREATHING TREATMENT, PT NOW RESTING IN BED SAT 94% ON 4LNC.
[2016-08-02] MEDS ORDERED: VANCOMYCIN IV 750 MG in IV DEXTROSE 5% 250 ML IV SCH (13:00)
--- NOTE | 2016-08-02 13:01 | NUR ---
Clinical Pharmacy Note: Vancomycin Dosing per Pharmacy Subjective: Vancomycin IV to continue on this 86 yo female patient for asp PNA, UTI, sepsis. Objective: BUN 14/Scr 0.7 (08/01) WBC 8.9 (08/01) Temperature 98.9 Vancomycin trough level: 11.9 Assessment/Plan: Since vancomycin trough level is 11.9 mcg/ml, will change dose from vancomycin 750mg IVPB q16hr to vancomycin 750mg IVPB q13h for expected trough of 15.8 mcg/ml at steady state. 1st dose is due today at 1300. Will draw a vancomycin trough level prior to the 4th dose of vancomycin (not yet ordered). Will monitor renal function and adjust vancomycin dose, if needed, should renal function change significantly. Will follow daily.
--- NOTE | 2016-08-02 15:20 | NUR ---
Rapid response called, pt desaturation, fluctuating SpO2 60-87%, ABG drawn.. pO2 low 35, Charge nurse speaking to . GERALDINE, leave on NRB for comfort, spoke with pt family
[2016-08-02 15:22] LABS: ABG BASE EXCESS 8.5 mmol/L; ABG HCO3 36.3 mmol/L; ABG PCO2 65.3 mmHg (35.0-45.0); ABG PH 7.363 (7.350-7.450); ABG PO2 35.5 mmHg (75.0-100.0); ABG SITE RIGHT RADIAL; ABG TOTAL HEMOGLOBIN 13.4 G/dL (12.0-16.0); COHb 0.9 % (0.5-1.5); MetHb 0.4 % (0.0-1.5); O2Hb 60.4 % (94.0-97.0)
[2016-08-02] MEDS: MORPHINE SULFATE 2 MG/1 ML DISP.SYRIN IV PRN (15:30)
[2016-08-02] MEDS ORDERED: LEVOFLOXACIN 250 MG TABLET GT SCH (17:00)
--- NOTE | 2016-08-02 18:49 | NUR ---
RAPID RESPONSE WAS CALLED AT 1458. PT SATING IN THE 60-87%. PT WAS USING ACCESSORY MUSCLES TO BREATH AND WHEN ASKED IF FEELING SHORT OF BREATH PT NODDED YES. PT WAS SUCTIONED AND PLACED ON NRB AT 15L. PT WAS PALE AND DIAPHORETIC. DR ANTHONY WAS CALLED AT 1302. ORDERS TO GIVE [address] CHAO WAS IN ROOM WITH PATIENT AND ORDERED STAT CXR. AT 1507 PT BP 137/73 HR 131 AND SAT 53% ON NRB. SONS WERE MADE AWARE OF PTS CONDITION. GTUBE FEEDING WAS STOPPED. 1700 MEDICATIONS WERE HELD DUE TO PT CONDITION. 1700 BP 116/69 HR 138 ON TELE MONITOR SAT 67% ON NRB 15L. SONS ARE WITH PT NOW, PT STILL ON NRB 15L AND HR 133 ON TELE. PT LETHARGIC RESPONDS TO YES OR NO QUESTIONS.
--- NOTE | 2016-08-02 19:34 | NUR ---
DR ANTHONY WAS CALLED DUE TO PATIENTS CONDITION AND ORDERED MORPHINE DOSAGE TO BE CHANGED TO 2MG Q2H PRN. ORDERS PLACED AND ENDORSED TO HUMAN RESOURCES BENEFITS COORDINATOR
[2016-08-02] MEDS ORDERED: MORPHINE SULFATE 2 MG/1 ML DISP.SYRIN IV PRN (19:35)
[2016-08-02 20:00] VITALS: BP 122/68
--- NOTE | 2016-08-02 20:30 | NUR ---
patient lethargic,obtunded,tachycardia hypoxemic and diaphoretic,family at bedside, in to see patient ,talks to family and decided for comfort care,Morphine drip ordered.
[2016-08-02] MEDS ORDERED: MORPHINE SULFATE PF IV DRIP 250 MG in IV DEXTROSE 5% 240 ML IV PRN (21:00)
--- NOTE | 2016-08-02 21:25 | NUR ---
Started Morphine drip at 2mg per hour,titrate for comfort to relieve pain/dyspnea every hour,patient appears comfortable at present times.
--- NOTE | 2016-08-02 22:20 | NUR ---
patient noted dyspnea increasing Morphine drip to 4 mg/hour per md order.
--- NOTE | 2016-08-02 22:40 | NUR ---
here,orders to increase morphine drip to 6 mg /hour now.
--- NOTE | 2016-08-03 00:30 | NUR ---
titrate Morphine drip to 10 mg/hours now,continue closely monitor,family stay at bedside.
--- NOTE | 2016-08-03 01:20 | NUR ---
Pt apneic for 5 mins, pupils fixed and dilated. no audible heart tones, no breath sounds for 2 mins. no palpable pulses for 1 minute. no corneal reflexes. Pt pronounced at 0105. will notify MD. pronounced with TERE Buchanan.
--- NOTE | 2016-08-03 01:30 | NUR ---
post mortem care done,[facility] [employer] and nursing machine assembler supervisor notified ,family here arranged mortuary.
--- NOTE | 2016-08-03 01:40 | NUR ---
nsg: Kofi Garcia NP notified of pt expiration.
--- NOTE | 2016-08-03 02:20 | NUR ---
The remains released to [facility] ,patient 's belongings given to family.
== END 2016-08-03 02:40 | disposition expired | DRG 871 ==
LOC: ER 11:37 → TELE 13:16 → MED 07-24 11:35 → TELE 07-29 14:25 → MED 08-01 08:59
PROVIDERS: ADMIT Nurse Practitioner Acute Care; ATTEND Nurse Practitioner Acute Care
PROC: 0DB68ZX Excision of Stomach, Via Natural or Artificial Opening Endoscopic, Diagnostic (ICD-10-PCS; 2016-07-26)
PROC: 0DH63UZ Insertion of Feeding Device into Stomach, Percutaneous Approach (ICD-10-PCS; principal; 2016-07-26 07:15)
DX: A41.9 Sepsis, unspecified organism (principal); R65.21 Severe sepsis with septic shock; J69.0 Pneumonitis due to inhalation of food and vomit; I50.33 Acute on chronic diastolic (congestive) heart failure; J96.01 Acute respiratory failure with hypoxia; G92 Toxic encephalopathy; E43 Unspecified severe protein-calorie malnutrition; N39.0 Urinary tract infection, site not specified; D68.9 Coagulation defect, unspecified; D68.59 Other primary thrombophilia; E87.2 Acidosis; I48.92 Unspecified atrial flutter; Z66 Do not resuscitate; Z51.5 Encounter for palliative care; R13.10 Dysphagia, unspecified; M81.0 Age-related osteoporosis without current pathological fracture; D69.6 Thrombocytopenia, unspecified; G20 Parkinson's disease; F02.80 Dementia in other diseases classified elsewhere, unspecified severity, without behavioral disturbance, psychotic disturbance, mood disturbance, and anxiety; G30.9 Alzheimer's disease, unspecified; I10 Essential (primary) hypertension; I48.91 Unspecified atrial fibrillation; Z88.2 Allergy status to sulfonamides; D50.9 Iron deficiency anemia, unspecified; E83.42 Hypomagnesemia; E55.9 Vitamin D deficiency, unspecified; E11.65 Type 2 diabetes mellitus with hyperglycemia; R62.7 Adult failure to thrive; J84.10 Pulmonary fibrosis, unspecified; I83.90 Asymptomatic varicose veins of unspecified lower extremity; M19.90 Unspecified osteoarthritis, unspecified site; Z74.09 Other reduced mobility; Z85.3 Personal history of malignant neoplasm of breast; Z90.10 Acquired absence of unspecified breast and nipple; I08.3 Combined rheumatic disorders of mitral, aortic and tricuspid valves; Z87.01 Personal history of pneumonia (recurrent); Z79.899 Other long term (current) drug therapy; Z91.81 History of falling; D75.1 Secondary polycythemia; K29.70 Gastritis, unspecified, without bleeding
CPT/HCPCS: 36415; 36600; 43235; 51702; 70030-TC; 71010; 71275; 74000; 83605; 83735; 84100; 84443; 85025; 85730; 87040; 87086; 92506; 92526; 93005; 94640; 94664; 97001; 97110; 97116; 97530; A4217; A4663; C1758; C9113; J0456; J0743; J1956; J2185; J2270; J2274; J2543; J2765; J3370; J3475; J3480; J3490; J3590; J7040; J7042; J7050; J7060; J7614; J8499; J8999; Q9967